=== PATIENT | male | born 1970 | race Caucasian/White ===

== ENCOUNTER 2016-12-22 08:28 | Inpatient (IN) | payer OTHER ==
[2016-12-22 10:21] VITALS: BMI 23.0
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
[2016-12-22] MEDS ORDERED: IBUPROFEN 400 MG TABLET (FP) PO PRN (13:25)
[2016-12-22] MEDS ORDERED: ACETAMINOPHEN 325 MG TABLET (FP) PO PRN (13:25)
[2016-12-22] MEDS ORDERED: P-EPHED 60MG/TRIPROLIDI 2.5MG TABLET PO PRN (13:25)
[2016-12-22] MEDS ORDERED: LOPERAMIDE HCL 2 MG CAPSULE PO PRN (13:25)
[2016-12-22] MEDS ORDERED: guaiFENesin/D-METHORPHAN HB 10 ML UNIT-DOSE CUPS PO PRN (13:25)
[2016-12-22] MEDS ORDERED: MAGNESIUM HYDROX 2400MG/30ML ORAL SUSPENSION 30 ML CUP PO PRN (13:25)
[2016-12-22] MEDS ORDERED: MAGNESIUM CITRATE 300 ML BOTTLE PO PRN (13:25)
[2016-12-22] MEDS ORDERED: NICOTINE POLACRILEX 4 MG GUM BUC PRN (13:25)
[2016-12-22] MEDS ORDERED: MAG HYDROX/AL HYDROX/SIMETH 30 ML UNIT-DOSE CUP PO PRN (13:25)
[2016-12-22] MEDS ORDERED: MENTHOL/PHENOL 1 EACH UD MM PRN (13:25)
[2016-12-22] MEDS ORDERED: METHADONE HCL 10 MG TABLET (FOR DETOX USE ONLY) PO ONE ×2 (14:02→23:00)
[2016-12-22 14:38] LABS: HIV 1 & 2 AB NEGATIVE; HIV 1 AGp24 NEGATIVE
[2016-12-22] MEDS: diazePAM 5 MG TABLET PO PRN ×2 (14:41→22:29)
[2016-12-22] MEDS: BACITRACIN 0.9 GM PACKET TP SCH ×2 (14:41→22:28)
[2016-12-22] MEDS: NICOTINE 21 MG/24 HOURS TOPICAL PATCH TD SCH (14:48)
--- NOTE | 2016-12-22 21:33 | EKG ---
Test Reason : Blood Pressure : / mmHG Vent. Rate : 061 BPM Atrial Rate : 061 BPM P-R Int : 146 ms QRS Dur : 094 ms QT Int : 434 ms P-R-T Axes : 069 059 058 degrees QTc Int : 436 ms NORMAL SINUS RHYTHM NORMAL ECG NO PREVIOUS ECGS AVAILABLE REPEAT EKG IF CLINICALLY INDICATED Confirmed by DONYA LEO MD ([id number]) on 12/22/2016 9:33:13 PM Referred By: Confirmed By:DONYA LEO MD
[2016-12-22] MEDS: THIAMINE HCL 100 MG TABLET (FP) PO SCH (22:29)
[2016-12-22 23:22] LABS: URINE APPEARANCE SLCLOUDY; URINE BILIRUBIN NEGATIVE (NEGATIVE); URINE BLOOD 3+ (NEGATIVE); URINE COLOR YELLOW; URINE GLUCOSE (UA) NEGATIVE (NEGATIVE); URINE KETONE NEGATIVE (NEGATIVE); URINE LEUK ESTERASE NEGATIVE (NEGATIVE); URINE NITRITE NEGATIVE (NEGATIVE); URINE PROTEIN NEGATIVE (NEGATIVE); URINE UROBILINOGEN NEGATIVE mg/dL (0.2-1.0)
[2016-12-22 23:28] LABS: CALCIUM OXALATE CRYSTALS FEW /hpf (NONE SEEN); URINE MUCUS RARE; URINE RBC 152 /hpf (0-3); URINE WBC 2 /hpf (3-5)
[2016-12-23] MEDS: diazePAM 5 MG TABLET PO PRN ×3 (05:33→22:23)
[2016-12-23] MEDS ORDERED: METHADONE HCL 10 MG TABLET (FOR DETOX USE ONLY) PO ONE (10:00)
[2016-12-23 10:16] LABS: MCH 31.9 pg (25.7-33.7); MCHC 34.1 g/dl (32.0-35.9); MEAN CELL VOLUME 93.5 fl (80-96); MEAN PLT VOLUME 9.1 fl (7.5-11.1)
[2016-12-23] MEDS: BACITRACIN 0.9 GM PACKET TP SCH ×2 (10:26→22:22)
[2016-12-23] MEDS: NICOTINE 21 MG/24 HOURS TOPICAL PATCH TD SCH (10:26)
[2016-12-23] MEDS: PRENATAL VITAMINS W/ FOLIC ACID TABLET (FP) PO SCH (10:26)
[2016-12-23 11:09] LABS: ALBUMIN 3.3 g/dl (3.4-5.0); ALK PHOS 74 U/L (45-117); ANION GAP 6 (8-16); BILIRUBIN,TOTAL 0.4 mg/dL (0.2-1.0); CALCIUM 8.8 mg/dL (8.5-10.1); CO2 31 mmol/L (21-32); CREATININE 0.9 mg/dL (0.7-1.3); GLUCOSE,RANDOM 71 mg/dL (74-106); SGOT/AST 61 U/L (15-37); SGPT/ALT 93 U/L (12-78); TOT PROT 7.2 g/dl (6.4-8.2)
[2016-12-23 11:47] LABS: PLATELET ESTIMATE DECREASED (NORMAL)
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
--- NOTE | 2016-12-23 13:02 | PN ---
S COWS - Scale Resting Pulse: 0= [place] 80 or Below Sweatin= Chills/Flushing Restless Observation: 3= Extraneous Movement Pupil Size: 2= Moderately Dilated Bone or Joint Aches: 4=Acute Joint/Muscle Pain Runny Nose/ Eye Tearin= Nasal Congestion GI Upset > 30mins: 1= Stomach Cramp Tremor Observation of Outstretched Hands: 2= Slight Tremor Visible Yawning Observation: 2= >3x During Session Anxiety or Irritability: 2=Irritable/Anxious Goose Flesh Skin: 0=Smooth Skin COWS Score: 18 BHS Progress Note (SOAP) Subjective: ANXIETY,SWEATS/CHILLS,FATIGUE. Objective: 12/23/16 13:01 Vital Signs Temperature 97.5 F L 12/23/16 09:32 Pulse Rate 72 12/23/16 09:32 Respiratory Rate 18 12/23/16 09:32 Blood Pressure 128/72 12/23/16 09:32 O2 Sat by Pulse Oximetry (%) Laboratory Last Values WBC 5.0 K/mm3 (4.0-10.0) 12/23/16 05:45 RBC 4.31 M/mm3 (4.00-5.60) 12/23/16 05:45 Hgb 13.8 GM/dL (11.7-16.9) 12/23/16 05:45 Hct 40.3 % (35.4-49) 12/23/16 05:45 MCV 93.5 fl (80-96) 12/23/16 05:45 MCH 31.9 pg (25.7-33.7) 12/23/16 05:45 MCHC 34.1 g/dl (32.0-35.9) 12/23/16 05:45 RDW 13.0 % (11.9-15.9) 12/23/16 05:45 Plt Count No Result Required. 12/23/16 05:45 MPV 9.1 fl (7.5-11.1) 12/23/16 05:45 Platelet Estimate Decreased (NORMAL) 12/23/16 05:45 Platelet Comment Mod plt clumping 12/23/16 05:45 Sodium 140 mmol/L (136-145) 12/23/16 05:45 Potassium 3.9 mmol/L (3.5-5.1) 12/23/16 05:45 Chloride 103 mmol/L (98-107) 12/23/16 05:45 Carbon Dioxide 31 mmol/L (21-32) 12/23/16 05:45 Anion Gap 6 (8-16) L 12/23/16 05:45 BUN 15 mg/dL (7-18) D 12/23/16 05:45 Creatinine 0.9 mg/dL (0.7-1.3) 12/23/16 05:45 Creat Clearance w eGFR > 60 (>60) 12/23/16 05:45 Random Glucose 71 mg/dL (74-106) L 12/23/16 05:45 Calcium 8.8 mg/dL (8.5-10.1) 12/23/16 05:45 Total Bilirubin 0.4 mg/dL (0.2-1.0) D 12/23/16 05:45 AST 61 U/L (15-37) H D 12/23/16 05:45 ALT 93 U/L (12-78) H D 12/23/16 05:45 Alkaline Phosphatase 74 U/L (45-117) D 12/23/16 05:45 Total Protein 7.2 g/dl (6.4-8.2) 12/23/16 05:45 Albumin 3.3 g/dl (3.4-5.0) L 12/23/16 05:45 Urine Color Yellow 12/22/16 20:00 Urine Appearance Slcloudy 12/22/16 20:00 Urine pH 5.0 (5.0-8.0) 12/22/16 20:00 Ur Specific [place] 1.020 (1.005-1.025) 12/22/16 20:00 Urine Protein Negative (NEGATIVE) 12/22/16 20:00 Urine Glucose (UA) Negative (NEGATIVE) 12/22/16 20:00 Urine Ketones Negative (NEGATIVE) 12/22/16 20:00 Urine Blood 3+ (NEGATIVE) H 12/22/16 20:00 Urine Nitrite Negative (NEGATIVE) 12/22/16 20:00 Urine Bilirubin Negative (NEGATIVE) 12/22/16 20:00 Urine Urobilinogen Negative mg/dL (0.2-1.0) 12/22/16 20:00 Ur Leukocyte Esterase Negative (NEGATIVE) 12/22/16 20:00 Urine RBC 152 /hpf (0-3) 12/22/16 20:00 Urine WBC 2 /hpf (3-5) 12/22/16 20:00 Ur Epithelial Cells Rare /hpf (FEW) 12/22/16 20:00 Calcium Oxalate Crystal Few /hpf (NONE SEEN) 12/22/16 20:00 Urine Mucus Rare 12/22/16 20:00 RPR Titer Nonreactive (NONREACTIVE) 12/23/16 05:45 HIV 1&2 Antibody Screen Negative 12/22/16 12:05 HIV P24 Antigen Negative 12/22/16 12:05 LABS NOTED Assessment: 12/23/16 13:01 WITHDRAWAL SX Plan: CONTINUE DETOX REPEAT UA;UC INCREASE PO FLUIDS
[2016-12-23] MEDS: THIAMINE HCL 100 MG TABLET (FP) PO SCH (22:22)
[2016-12-23 23:16] LABS: URINE APPEARANCE CLEAR; URINE BILIRUBIN NEGATIVE (NEGATIVE); URINE BLOOD NEGATIVE (NEGATIVE); URINE COLOR LTYELLOW; URINE GLUCOSE (UA) NEGATIVE (NEGATIVE); URINE KETONE NEGATIVE (NEGATIVE); URINE LEUK ESTERASE NEGATIVE (NEGATIVE); URINE NITRITE NEGATIVE (NEGATIVE); URINE PROTEIN NEGATIVE (NEGATIVE); URINE UROBILINOGEN NEGATIVE mg/dL (0.2-1.0)
[2016-12-24] MEDS ORDERED: METHADONE HCL 5 MG TABLET (FOR DETOX USE ONLY) PO ONE (10:00)
[2016-12-24] MEDS: BACITRACIN 0.9 GM PACKET TP SCH ×2 (10:41→22:16)
[2016-12-24] MEDS: PRENATAL VITAMINS W/ FOLIC ACID TABLET (FP) PO SCH (10:42)
[2016-12-24] MEDS: NICOTINE 21 MG/24 HOURS TOPICAL PATCH TD SCH (10:43)
--- NOTE | 2016-12-24 11:11 | PN ---
BHS COWS - Scale Resting Pulse: 0= [place] 80 or Below Sweatin= Chills/Flushing Restless Observation: 3= Extraneous Movement Pupil Size: 2= Moderately Dilated Bone or Joint Aches: 4=Acute Joint/Muscle Pain Runny Nose/ Eye Tearin= Nasal Congestion GI Upset > 30mins: 1= Stomach Cramp Tremor Observation of Outstretched Hands: 1= Tremor Marcell, Not Seen Yawning Observation: 2= >3x During Session Anxiety or Irritability: 2=Irritable/Anxious Goose Flesh Skin: 0=Smooth Skin COWS Score: 17 BHS Progress Note (SOAP) Subjective: ANXIETY,SWEATS,IRRITABILITY. Objective: 12/24/16 11:11 Vital Signs Temperature 98.2 F 12/24/16 09:52 Pulse Rate 75 12/24/16 09:52 Respiratory Rate 16 12/24/16 09:52 Blood Pressure 123/73 12/24/16 09:52 O2 Sat by Pulse Oximetry (%) Laboratory Last Values WBC 5.0 K/mm3 (4.0-10.0) 12/23/16 05:45 RBC 4.31 M/mm3 (4.00-5.60) 12/23/16 05:45 Hgb 13.8 GM/dL (11.7-16.9) 12/23/16 05:45 Hct 40.3 % (35.4-49) 12/23/16 05:45 MCV 93.5 fl (80-96) 12/23/16 05:45 MCH 31.9 pg (25.7-33.7) 12/23/16 05:45 MCHC 34.1 g/dl (32.0-35.9) 12/23/16 05:45 RDW 13.0 % (11.9-15.9) 12/23/16 05:45 Plt Count No Result Required. 12/23/16 05:45 MPV 9.1 fl (7.5-11.1) 12/23/16 05:45 Platelet Estimate Decreased (NORMAL) 12/23/16 05:45 Platelet Comment Mod plt clumping 12/23/16 05:45 Sodium 140 mmol/L (136-145) 12/23/16 05:45 Potassium 3.9 mmol/L (3.5-5.1) 12/23/16 05:45 Chloride 103 mmol/L (98-107) 12/23/16 05:45 Carbon Dioxide 31 mmol/L (21-32) 12/23/16 05:45 Anion Gap 6 (8-16) L 12/23/16 05:45 BUN 15 mg/dL (7-18) D 12/23/16 05:45 Creatinine 0.9 mg/dL (0.7-1.3) 12/23/16 05:45 Creat Clearance w eGFR > 60 (>60) 12/23/16 05:45 Random Glucose 71 mg/dL (74-106) L 12/23/16 05:45 Calcium 8.8 mg/dL (8.5-10.1) 12/23/16 05:45 Total Bilirubin 0.4 mg/dL (0.2-1.0) D 12/23/16 05:45 AST 61 U/L (15-37) H D 12/23/16 05:45 ALT 93 U/L (12-78) H D 12/23/16 05:45 Alkaline Phosphatase 74 U/L (45-117) D 12/23/16 05:45 Total Protein 7.2 g/dl (6.4-8.2) 12/23/16 05:45 Albumin 3.3 g/dl (3.4-5.0) L 12/23/16 05:45 Urine Color Ltyellow 12/23/16 17:00 Urine Appearance Clear 12/23/16 17:00 Urine pH 5.0 (5.0-8.0) 12/23/16 17:00 Ur Specific [place] 1.020 (1.005-1.025) 12/23/16 17:00 Urine Protein Negative (NEGATIVE) 12/23/16 17:00 Urine Glucose (UA) Negative (NEGATIVE) 12/23/16 17:00 Urine Ketones Negative (NEGATIVE) 12/23/16 17:00 Urine Blood Negative (NEGATIVE) 12/23/16 17:00 Urine Nitrite Negative (NEGATIVE) 12/23/16 17:00 Urine Bilirubin Negative (NEGATIVE) 12/23/16 17:00 Urine Urobilinogen Negative mg/dL (0.2-1.0) 12/23/16 17:00 Ur Leukocyte Esterase Negative (NEGATIVE) 12/23/16 17:00 Urine RBC 152 /hpf (0-3) 12/22/16 20:00 Urine WBC 2 /hpf (3-5) 12/22/16 20:00 Ur Epithelial Cells Rare /hpf (FEW) 12/22/16 20:00 Calcium Oxalate Crystal Few /hpf (NONE SEEN) 12/22/16 20:00 Urine Mucus Rare 12/22/16 20:00 RPR Titer Nonreactive (NONREACTIVE) 12/23/16 05:45 HIV 1&2 Antibody Screen Negative 12/22/16 12:05 HIV P24 Antigen Negative 12/22/16 12:05 Assessment: 12/24/16 11:11 WITHDRAWAL SX Plan: CONTINUE DETOX
[2016-12-24] MEDS: THIAMINE HCL 100 MG TABLET (FP) PO SCH (22:16)
[2016-12-24] MEDS: diazePAM 5 MG TABLET PO PRN (22:16)
[2016-12-25] MEDS ORDERED: METHADONE HCL 5 MG TABLET (FOR DETOX USE ONLY) PO ONE (10:00)
[2016-12-25] MEDS: PRENATAL VITAMINS W/ FOLIC ACID TABLET (FP) PO SCH (10:18)
[2016-12-25] MEDS: BACITRACIN 0.9 GM PACKET TP SCH ×2 (10:18→22:38)
[2016-12-25] MEDS: NICOTINE 21 MG/24 HOURS TOPICAL PATCH TD SCH (10:19)
--- NOTE | 2016-12-25 11:14 | PN ---
S Progress Note (SOAP) Subjective: DECREASED,ANXIETY,SWEATS/CHILLS. Objective: 12/25/16 11:13 Vital Signs Temperature 97.7 F 12/25/16 09:17 Pulse Rate 64 12/25/16 09:17 Respiratory Rate 18 12/25/16 09:17 Blood Pressure 100/67 12/25/16 09:17 O2 Sat by Pulse Oximetry (%) Laboratory Last Values WBC 5.0 K/mm3 (4.0-10.0) 12/23/16 05:45 RBC 4.31 M/mm3 (4.00-5.60) 12/23/16 05:45 Hgb 13.8 GM/dL (11.7-16.9) 12/23/16 05:45 Hct 40.3 % (35.4-49) 12/23/16 05:45 MCV 93.5 fl (80-96) 12/23/16 05:45 MCH 31.9 pg (25.7-33.7) 12/23/16 05:45 MCHC 34.1 g/dl (32.0-35.9) 12/23/16 05:45 RDW 13.0 % (11.9-15.9) 12/23/16 05:45 Plt Count No Result Required. 12/23/16 05:45 MPV 9.1 fl (7.5-11.1) 12/23/16 05:45 Platelet Estimate Decreased (NORMAL) 12/23/16 05:45 Platelet Comment Mod plt clumping 12/23/16 05:45 Sodium 140 mmol/L (136-145) 12/23/16 05:45 Potassium 3.9 mmol/L (3.5-5.1) 12/23/16 05:45 Chloride 103 mmol/L (98-107) 12/23/16 05:45 Carbon Dioxide 31 mmol/L (21-32) 12/23/16 05:45 Anion Gap 6 (8-16) L 12/23/16 05:45 BUN 15 mg/dL (7-18) D 12/23/16 05:45 Creatinine 0.9 mg/dL (0.7-1.3) 12/23/16 05:45 Creat Clearance w eGFR > 60 (>60) 12/23/16 05:45 Random Glucose 71 mg/dL (74-106) L 12/23/16 05:45 Calcium 8.8 mg/dL (8.5-10.1) 12/23/16 05:45 Total Bilirubin 0.4 mg/dL (0.2-1.0) D 12/23/16 05:45 AST 61 U/L (15-37) H D 12/23/16 05:45 ALT 93 U/L (12-78) H D 12/23/16 05:45 Alkaline Phosphatase 74 U/L (45-117) D 12/23/16 05:45 Total Protein 7.2 g/dl (6.4-8.2) 12/23/16 05:45 Albumin 3.3 g/dl (3.4-5.0) L 12/23/16 05:45 Urine Color Ltyellow 12/23/16 17:00 Urine Appearance Clear 12/23/16 17:00 Urine pH 5.0 (5.0-8.0) 12/23/16 17:00 Ur Specific [place] 1.020 (1.005-1.025) 12/23/16 17:00 Urine Protein Negative (NEGATIVE) 12/23/16 17:00 Urine Glucose (UA) Negative (NEGATIVE) 12/23/16 17:00 Urine Ketones Negative (NEGATIVE) 12/23/16 17:00 Urine Blood Negative (NEGATIVE) 12/23/16 17:00 Urine Nitrite Negative (NEGATIVE) 12/23/16 17:00 Urine Bilirubin Negative (NEGATIVE) 12/23/16 17:00 Urine Urobilinogen Negative mg/dL (0.2-1.0) 12/23/16 17:00 Ur Leukocyte Esterase Negative (NEGATIVE) 12/23/16 17:00 Urine RBC 152 /hpf (0-3) 12/22/16 20:00 Urine WBC 2 /hpf (3-5) 12/22/16 20:00 Ur Epithelial Cells Rare /hpf (FEW) 12/22/16 20:00 Calcium Oxalate Crystal Few /hpf (NONE SEEN) 12/22/16 20:00 Urine Mucus Rare 12/22/16 20:00 RPR Titer Nonreactive (NONREACTIVE) 12/23/16 05:45 HIV 1&2 Antibody Screen Negative 12/22/16 12:05 HIV P24 Antigen Negative 12/22/16 12:05 Assessment: 12/25/16 11:14 WITHDRAWAL SX Plan: CONTINUED DETOX
[2016-12-25 16:11] LABS: URINE APPEARANCE CLEAR; URINE BILIRUBIN NEGATIVE (NEGATIVE); URINE BLOOD NEGATIVE (NEGATIVE); URINE COLOR LTYELLOW; URINE GLUCOSE (UA) NEGATIVE (NEGATIVE); URINE KETONE NEGATIVE (NEGATIVE); URINE LEUK ESTERASE NEGATIVE (NEGATIVE); URINE NITRITE NEGATIVE (NEGATIVE); URINE PROTEIN NEGATIVE (NEGATIVE); URINE UROBILINOGEN NEGATIVE mg/dL (0.2-1.0)
[2016-12-25] MEDS: THIAMINE HCL 100 MG TABLET (FP) PO SCH (22:26)
[2016-12-25] MEDS: diphenhydrAMINE HCL 50 MG CAPSULE PO PRN (22:26)
[2016-12-26] MEDS ORDERED: METHADONE HCL 10 MG TABLET (FOR DETOX USE ONLY) PO ONE (10:00)
[2016-12-26] MEDS: NICOTINE 21 MG/24 HOURS TOPICAL PATCH TD SCH (10:18)
[2016-12-26] MEDS: PRENATAL VITAMINS W/ FOLIC ACID TABLET (FP) PO SCH (10:18)
[2016-12-26] MEDS: BACITRACIN 0.9 GM PACKET TP SCH ×2 (10:18→22:20)
--- NOTE | 2016-12-26 15:00 | PN ---
S Progress Note (SOAP) Subjective: Tremors. Objective: PT. A & O X 3, OBSERVED AMBULATING ON UNIT. NO ACUTE DISTRESS. PT. DENIES CHEST PAIN. 12/26/16 14:58 Vital Signs Temperature 97.0 F L 12/26/16 13:43 Pulse Rate 63 12/26/16 13:43 Respiratory Rate 18 12/26/16 13:43 Blood Pressure 102/70 12/26/16 13:43 O2 Sat by Pulse Oximetry (%) Laboratory Tests 12/22/16 12/22/16 12/23/16 12:05 20:00 05:45 WBC 5.0 RBC 4.31 Hgb 13.8 Hct 40.3 MCV 93.5 MCH 31.9 MCHC 34.1 RDW 13.0 Plt Count No Result Required. MPV 9.1 Platelet Estimate Decreased Platelet Comment Mod plt clumping Sodium Potassium Chloride Carbon Dioxide Anion Gap BUN Creatinine Creat Clearance w eGFR Random Glucose Calcium Total Bilirubin AST ALT Alkaline Phosphatase Total Protein Albumin Urine Color Yellow Urine Appearance Slcloudy Urine pH 5.0 Ur Specific [place] 1.020 Urine Protein Negative Urine Glucose (UA) Negative Urine Ketones Negative Urine Blood 3+ H Urine Nitrite Negative Urine Bilirubin Negative Urine Urobilinogen Negative Ur Leukocyte Esterase Negative Urine RBC 152 Urine WBC 2 Ur Epithelial Cells Rare Calcium Oxalate Crystal Few Urine Mucus Rare RPR Titer HIV 1&2 Antibody Screen Negative HIV P24 Antigen Negative 12/23/16 12/23/16 12/23/16 05:45 05:45 17:00 WBC RBC Hgb Hct MCV MCH MCHC RDW Plt Count MPV Platelet Estimate Platelet Comment Sodium 140 Potassium 3.9 Chloride 103 Carbon Dioxide 31 Anion Gap 6 L BUN 15 D Creatinine 0.9 Creat Clearance w eGFR > 60 Random Glucose 71 L Calcium 8.8 Total Bilirubin 0.4 D AST 61 H D ALT 93 H D Alkaline Phosphatase 74 D Total Protein 7.2 Albumin 3.3 L Urine Color Ltyellow Urine Appearance Clear Urine pH 5.0 Ur Specific [place] 1.020 Urine Protein Negative Urine Glucose (UA) Negative Urine Ketones Negative Urine Blood Negative Urine Nitrite Negative Urine Bilirubin Negative Urine Urobilinogen Negative Ur Leukocyte Esterase Negative Urine RBC Urine WBC Ur Epithelial Cells Calcium Oxalate Crystal Urine Mucus RPR Titer Nonreactive HIV 1&2 Antibody Screen HIV P24 Antigen 12/25/16 13:40 WBC RBC Hgb Hct MCV MCH MCHC RDW Plt Count MPV Platelet Estimate Platelet Comment Sodium Potassium Chloride Carbon Dioxide Anion Gap BUN Creatinine Creat Clearance w eGFR Random Glucose Calcium Total Bilirubin AST ALT Alkaline Phosphatase Total Protein Albumin Urine Color Ltyellow Urine Appearance Clear Urine pH 7.0 D Ur Specific [place] 1.015 Urine Protein Negative Urine Glucose (UA) Negative Urine Ketones Negative Urine Blood Negative Urine Nitrite Negative Urine Bilirubin Negative Urine Urobilinogen Negative Ur Leukocyte Esterase Negative Urine RBC Urine WBC Ur Epithelial Cells Calcium Oxalate Crystal Urine Mucus RPR Titer HIV 1&2 Antibody Screen HIV P24 Antigen LABS NOTED. RESULTS OF UA'S NOTED. PATIENT DENIES ANY UNUSUAL URINARY SYMPTOMS (BURNING, PAIN, FREQUENCY). 12/26/16 15:00 Assessment: 12/26/16 14:59 WITHDRAWAL SYMPTOMS. Plan: CONTINUE DETOX.
[2016-12-26] MEDS: THIAMINE HCL 100 MG TABLET (FP) PO SCH (22:20)
[2016-12-26] MEDS: diphenhydrAMINE HCL 50 MG CAPSULE PO PRN (22:20)
[2016-12-27] MEDS ORDERED: METHADONE HCL 5 MG TABLET (FOR DETOX USE ONLY) PO ONE (06:00)
[2016-12-27 06:20] VITALS: TEMP 97
[2016-12-27 09:28] VITALS: BP 99/67; PULSE 64
--- NOTE | 2016-12-27 16:46 | DS ---
[facility] Detox Discharge Summary Admission Date: 12/22/16 - History Present History: Cocaine Dependence, Opioid Dependence Pertinent Past History: Elevated LFTs (chronic) - Physical Exam Results Vital Signs: Vital Signs Temperature 97.0 F L 12/27/16 09:28 Pulse Rate 64 12/27/16 09:28 Respiratory Rate 20 12/27/16 09:28 Blood Pressure 99/67 12/27/16 09:28 O2 Sat by Pulse Oximetry (%) Pertinent Admission Physical Exam Findings: Withdrawal symptoms Laboratory Tests 12/22/16 12/22/16 12/23/16 12:05 20:00 05:45 WBC 5.0 RBC 4.31 Hgb 13.8 Hct 40.3 MCV 93.5 MCH 31.9 MCHC 34.1 RDW 13.0 Plt Count No Result Required. MPV 9.1 Platelet Estimate Decreased Platelet Comment Mod plt clumping Sodium Potassium Chloride Carbon Dioxide Anion Gap BUN Creatinine Creat Clearance w eGFR Random Glucose Calcium Total Bilirubin AST ALT Alkaline Phosphatase Total Protein Albumin Urine Color Yellow Urine Appearance Slcloudy Urine pH 5.0 Ur Specific [place] 1.020 Urine Protein Negative Urine Glucose (UA) Negative Urine Ketones Negative Urine Blood 3+ H Urine Nitrite Negative Urine Bilirubin Negative Urine Urobilinogen Negative Ur Leukocyte Esterase Negative Urine RBC 152 Urine WBC 2 Ur Epithelial Cells Rare Calcium Oxalate Crystal Few Urine Mucus Rare RPR Titer HIV 1&2 Antibody Screen Negative HIV P24 Antigen Negative 12/23/16 12/23/16 12/23/16 05:45 05:45 17:00 WBC RBC Hgb Hct MCV MCH MCHC RDW Plt Count MPV Platelet Estimate Platelet Comment Sodium 140 Potassium 3.9 Chloride 103 Carbon Dioxide 31 Anion Gap 6 L BUN 15 D Creatinine 0.9 Creat Clearance w eGFR > 60 Random Glucose 71 L Calcium 8.8 Total Bilirubin 0.4 D AST 61 H D ALT 93 H D Alkaline Phosphatase 74 D Total Protein 7.2 Albumin 3.3 L Urine Color Ltyellow Urine Appearance Clear Urine pH 5.0 Ur Specific [place] 1.020 Urine Protein Negative Urine Glucose (UA) Negative Urine Ketones Negative Urine Blood Negative Urine Nitrite Negative Urine Bilirubin Negative Urine Urobilinogen Negative Ur Leukocyte Esterase Negative Urine RBC Urine WBC Ur Epithelial Cells Calcium Oxalate Crystal Urine Mucus RPR Titer Nonreactive HIV 1&2 Antibody Screen HIV P24 Antigen 12/25/16 13:40 WBC RBC Hgb Hct MCV MCH MCHC RDW Plt Count MPV Platelet Estimate Platelet Comment Sodium Potassium Chloride Carbon Dioxide Anion Gap BUN Creatinine Creat Clearance w eGFR Random Glucose Calcium Total Bilirubin AST ALT Alkaline Phosphatase Total Protein Albumin Urine Color Ltyellow Urine Appearance Clear Urine pH 7.0 D Ur Specific [place] 1.015 Urine Protein Negative Urine Glucose (UA) Negative Urine Ketones Negative Urine Blood Negative Urine Nitrite Negative Urine Bilirubin Negative Urine Urobilinogen Negative Ur Leukocyte Esterase Negative Urine RBC Urine WBC Ur Epithelial Cells Calcium Oxalate Crystal Urine Mucus RPR Titer HIV 1&2 Antibody Screen HIV P24 Antigen Labs noted - Treatment Hospital Course: Detox Protocol Followed, Detoxed Safely, Responded well, Discharged Condition Good - Medication Discharge Medications: Ambulatory Orders [place] Carbonate [Eskalith -] 300 mg PO DAILY 12/22/16 [place] Carbonate [Eskalith -] 600 mg PO HS 12/22/16 Sertraline HCl [Zoloft -] 25 mg PO DAILY 12/22/16 - Diagnosis (1) Cocaine dependence with withdrawal Status: Chronic (2) Nicotine dependence Status: Chronic Qualifiers: Nicotine product type: cigarettes Substance use status: in withdrawal Qualified Code(s): F17.213 - Nicotine dependence, cigarettes, with withdrawal (3) Opioid dependence with withdrawal Status: Acute (4) Bipolar disorder Status: Chronic - AMA Did Patient Leave Against Medical Advice: No
== END 2016-12-27 08:49 | disposition home or self-care (01) | DRG 773 ==
LOC: YASAS 08:28 → Y3N 13:36
PROVIDERS: ADMIT Internal Medicine; ATTEND Internal Medicine
PROC: HZ2ZZZZ Detoxification Services for Substance Abuse Treatment (ICD-10-PCS; principal; 2016-12-27)
DX: F11.23 Opioid dependence with withdrawal (principal); F13.230 Sedative, hypnotic or anxiolytic dependence with withdrawal, uncomplicated; F14.20 Cocaine dependence, uncomplicated; F17.210 Nicotine dependence, cigarettes, uncomplicated; F31.9 Bipolar disorder, unspecified; S00.12XA Contusion of left eyelid and periocular area, initial encounter; Y04.0XXA Assault by unarmed brawl or fight, initial encounter; Y92.89 Other specified places as the place of occurrence of the external cause
CPT/HCPCS: 36415; 80053; 81003; 81015; 85027; 86593; 87086; 87389; 93005; 93010

== ENCOUNTER 2020-03-08 11:01 | Inpatient (IN) | payer OTHER ==
--- OUTSIDE RECORDS SUMMARY | 2020-03-08 11:11 | XMS ---
:1970 Author Organization [facility] Care Team Providers Name Role Phone Johnathon Tapia MD Unavailable Unavailable Dejah Bo SCAFFOLD WORKER Unavailable Unavailable [facility] Unavailable Unavailable Peris, D Unavailable Unavailable Aaron Unavailable Unavailable Noyer Unavailable Unavailable Noyer Unavailable Unavailable Noyer Unavailable Unavailable Noyer Unavailable Unavailable Noyer Unavailable Unavailable Noyer Unavailable Unavailable GROSS, S Unavailable Unavailable GROSS, S Unavailable Unavailable GROSS, S Unavailable Unavailable GROSS, S Unavailable Unavailable GROSS, S Unavailable Unavailable GROSS, S Unavailable Unavailable GROSS, S Unavailable Unavailable GROSS, S Unavailable Unavailable GROSS, S Unavailable Unavailable Re-disclosure Warning The records that you are about to access may contain information from federally- assisted alcohol or drug abuse programs. If such information is present, then the following federally mandated warning applies: This information has been disclosed to you from records protected by federal confidentiality rules (42 CFR part 2). The federal rules prohibit you from making any further disclosure of this information unless further disclosure is expressly permitted by the written consent of the person to whom it pertains or as otherwise permitted by 42 CFR part 2. A general authorization for the release of medical or other information is NOT sufficient for this purpose. The Federal rules restrict any use of the information to criminally investigate or prosecute any alcohol or drug abuse patient.The records that you are about to access may contain highly sensitive health information, the redisclosure of which is protected by Article 27-F of the [facility] Public Health law. If you continue you may haveaccess to information: Regarding HIV / AIDS; Provided by facilities licensed or operated by the [facility] Office of Mental Health; or Provided by the [facility] Office for People With Developmental Disabilities. If such information is present, then the following [facility] mandated warning applies: This information has been disclosed to you from confidential records which are protected by state law. State law prohibits you from making any further disclosure of this information without the specific written consent of the person to whom it pertains, or as otherwise permitted by law. Any unauthorized further disclosure in violation of state law may result in a fine or senior living sentence or both. A general authorization for the release of medical or other information is NOT sufficient authorization for further disclosure. Allergies and Adverse Reactions Type Description Substance Reaction Status Data Source(s ) 3 PENICILLINS PENICILLINS NEXTGEN ([facility]) Encounters Encounter Providers Location Date Indications Data Source(s ) Outpatient Attender: NARAYAN 03/04/2020 [facility] ([facility] 05:45:24 PM [facility] EDT [facility]) Patient admitted. Outpatient Attender: Omar 02/27/2020 03:15:00 PM NEXTGEN ([facility] PerisReferrer: MARY LOU GROSS EDT Medical - [facility] ) Outpatient Attender: MARY LOU 02/23/2020 12:45:00 PM NEXTGEN ([facility] GROSSReferrer: MARY LOU GROSS EDT [facility] - [facility]) Outpatient Attender: MARY LOU DE LOS SANTOS 02/15/2020 03:53:00 PM NEXTGEN ([facility]T [facility]) Outpatient Attender: MARY LOU 02/09/2020 10:15:00 AM NEXTGEN ([facility] GROSSReferrer: MARY LOU GROSS EDT [facility] - [facility] ) Outpatient Attender: Yobani 02/06/2020 05:15:00 PM NEXTGEN ([facility] NeptuneReferrer: Yobani EDT Oh dical - [facility]) Outpatient Attender: [place] [facility] 12/30/2019 12:54:19 PM [facility] ([facility] EDT [facility]) Patient admitted. Outpatient Attender: Digestive 12/07/2019 MEDENT ([facility] adriana [place] [facility] & 09:40:00 AM EDT Diseas e & Nutrition Nutrition [facility] ) Outpatient Attender: Digestive 10/09/2019 MEDENT (Digest adriana [place] [facility] & 03:10:00 PM EDT Diseas e & Nutrition Nutrition [facility] ) Outpatient Attender: Digestive 09/21/2019 MEDENT (Digest adriana [place] [facility] & 02:30:00 PM EDT Diseas e & Nutrition Nutrition [facility] ) Outpatient Attender: Digestive 09/14/2019 MEDENT (Digest adriana [place] [facility] & 10:10:00 AM EDT Diseas e & Nutrition Nutrition [facility] ) Outpatient Attender: Dejah 09/06/2019 [facility] eber Bo 08:00:00 AM EDT [facility] Outpatient Attender: MHAW9 [facility] 08/18/2019 07:05:55 AM [facility] ([facility]) Patient admitted. Unlisted evaluation 08/02/2019 NETS ART (Mental and management 08:00:00 PM EST [facility] ) Emergency Attender: Johnathon 07/16/2019 ANNETTE Tapia MD 08:25:00 PM [facility] 07[facility] " [place] 10:34:00 PM EST FB "[facility]" [place] Patient discharged. Outpatient Attender: Dejah Bo 06/08/2019 11:48:00 AM F/ U [facility] EST F/U Outpatient 03/27/2019 02:19:00 PM EDT [facility] ([facility]) Patient admitted. Outpatient 03/27/2019 02:18:57 PM EDT [facility] ([facility]) Patient admitted. Outpatient 03/27/2019 02:18:51 PM EDT [facility] ([facility]) Patient admitted. Outpatient 03/27/2019 02:18:48 PM EDT [facility] ([facility]) Patient admitted. Outpatient 03/27/2019 02:18:26 PM EDT [facility] ([facility]) Patient admitted. Outpatient 03/27/2019 02:18:23 PM EDT [facility] ([facility]) Patient admitted. Medications Medication Brand Start Product Dose Route Administrative Pharmacy St atus Indications Reaction Description Data Name Date Form Instructions Instructions Source(s) Methylpheni RITALI RP NEXTGE N date N ([facility] Hydrochlori Medical - de 5 MG [place] [facility] Tablet Medical [Ritalin] 5 Group [facility] ) mg 5 mg This may be an active medication. No end date is available. Start date above may not reflect actual date the medication was s tarted. Acetaminophen 325 NORCO 02/23/2020 take 1 RP NEXTGEN MG / Hydrocodone 12:00:00 AM EDT tablet by ([facility] Bitartrate 5 MG oral route Medical - Mt Oral Tablet [[place]] every day as [facility] 5 mg-325 mg 5 needed for Group PC) mg-325 mg pain, no etoh, no driving This may be an active medication. No end date is available. Prednisone 10 PREDNISONE 02/23/2020 take 4 tabs RP NEXTGEN MG Oral Tablet 12:00:00 AM EDT po x2 days, 3 ([facility] 10 mg 10 mg tabs x 2 Medi jian - Mt days, 2 tabs [facility] x 2 day, 1 Group PC) tab x 1 day take after breakfast This may be an active medication. No end date is available. Ibuprofen 800 IBUPROFEN 02/15/2020 take 1 RP NEXTGEN MG Oral Tablet 12:00:00 AM EDT tablet by ([facility] 800 mg 800 mg oral route 2 Medical - [facility] times every [facility] day as Group [facility]) needed, with food This may be an active medication. No end date is available. Ibuprofen 800 IBUPROFEN 02/09/2020 take 1 RP NEXTGEN MG Oral Tablet 12:00:00 AM EDT tablet by ([facility] 800 mg 800 mg oral route 2 Medical - [facility] times every [facility] day as Group [facility]) needed, with food This may be an active medication. No end date is available. tizanidine 4 MG TIZANIDINE HCL 02/09/2020 take 1 RP NEXTGEN Oral Capsule 4 12:00:00 AM capsule by ([facility] mg 4 mg EDT oral route Medica l - Mt every day [facility] as needed, Group PC) This may be an active medication. No end date is available. Cyclobenzaprine CYCLOBENZAPRINE 02/06/2020 take 1 RP NEXTGEN hydrochloride 10 HCL 12:00:00 AM tablet ([facility] MG Oral Tablet 10 EDT by oral Medical - Mt mg 10 mg route 2 [facility] times Medical every Group [facility]) day This may be an active medication. No end date is available. 24 HR Methylphenidate 01/12/2020 1.0 Oral active NETSMART Methylphenidate HCl 04:00:00 AM Tablet (Mental Hydrochloride 54 EDT Hea lth MG Extended Associat ion Release Oral of Tablet [place]) Methylphenidate Methylphenidate 01/12/2020 1.0 Oral active NETSMART Hydrochloride 10 HCl 04:00:00 AM Tablet (Mental MG Oral Tablet EDT [facility]) [place] 01/12/2020 2.0 Oral active N ETSMART Carbonate 450 MG Carbonate 04:00:00 AM Tablet (Mental Extended Release EDT Hea lth Oral Tablet Associat [facility]) 24 HR Methylphenidate 12/13/2019 1.0 Oral active NETSMART Methylphenidate HCl 04:00:00 AM Tablet (Mental Hydrochloride 54 EDT Hea lth MG Extended Associat ion Release Oral of Tablet [place]) Methylphenidate Methylphenidate 12/13/2019 1.0 Oral active NETSMART Hydrochloride 10 HCl 04:00:00 AM Tablet (Mental MG Oral Tablet [facility]) [place] 12/13/2019 2.0 Oral active N ETSMART Carbonate 450 MG Carbonate 04:00:00 AM Tablet (Mental Extended Release EDT Hea lth Oral Tablet [facility]) Methylphenidate 11/13/2019 1.0 Oral active NETSMART HCl 04:00:00 AM Tablet (Menta l [facility]) [place] 11/13/2019 2.0 Oral active N ETSMART Carbonate 450 MG Carbonate 04:00:00 AM Tablet (Mental Extended Release EDT Hea lth Oral Tablet Associat [facility]) Methylphenidate Methylphenidate 11/13/2019 1.0 Oral active NETSMART Hydrochloride 10 HCl 04:00:00 AM Tablet (Mental MG Oral Tablet [facility]) Methylphenidate Methylphenidate 10/10/2019 1.0 Oral active NETSMART Hydrochloride 10 HCl 04:00:00 AM Tablet (Mental MG Oral Tablet [facility]) Methylphenidate 10/10/2019 1.0 Oral active NETSMART HCl 04:00:00 AM Tablet (Menta l [facility]) [place] 10/10/2019 2.0 Oral active N ETSMART Carbonate 450 MG Carbonate 04:00:00 AM Tablet (Mental Extended Release EDT Hea lth Oral Tablet Associat [facility]) Mavyret Mavyret 10/09/2019 ORAL active M EDENT 12:00:00 AM (Digesti ve [facility] Disease & Nutrition [facility]) magnesium Magnesium 07/16/2019 SOLUT 296 mL ORAL active [place] citrate 58.2 Citrate 10:28:00 PM ION Hospital MG/ML Oral EST Solution [Citroma] Magnesium Citrate sennosides, GROUP HOME Sennosides 07/16/2019 TABLE 1 ORAL active [place] 8.6 MG Oral 10:28:00 PM T {Capsul Hospital Tablet EST e} Sennosides Docusate Sodium Docusate Sodium 07/16/2019 CAPSU 1 ORAL active [place] 100 MG Oral 10:28:00 PM LE {Capsul Hospital Capsule EST e} Insurance Providers Payer name Policy type Policy ID Covered Covered libertarian's Policy P angeline / Coverage libertarian ID relationship to [place] Inf ormation type rocha [facility] Medicaid [id number] 1 [id number] And Child Health Plus [place] [id number] PT [id number] 700 [facility] [id number] PT [id number] 700 [facility] MEDICAID [id number] Medicaid [id number] S [id number] Regular Clinic Visit Problems, Conditions, and Diagnoses Code Display Name Description Problem Type Effective Data Sour ce(s) Dates [id number] Bipolar I disorder Bipolar I Complaint 08/01/2019 NETSMA RT disorder 08:00:00 PM (Mental Healt h EST [facility]) M48.02 Spinal stenosis, Cervical Diagnosis 02/23/2020 NEXTGEN cervical region stenosis of 12:45:00 PM ([facility] spinal canal [facility]) M54.12 Radiculopathy, Cervical Diagnosis 02/09/2020 NEXTGEN cervical region radiculopathy 10:15:00 AM ([facility]) M25.512 Pain in left shoulder Pain in left Diagnosis 02/06/2020 N EXTGEN shoulder 05:15:00 PM ([facility] EDT [facility]) M25.511 Pain in right Acute pain of Diagnosis 02/06/2020 NEXTGEN shoulder both shoulders 05:15:00 PM ([facility] EDT [facility]) M54.2 Cervicalgia Neck pain Diagnosis 02/06/2020 NEXTGEN 05:15:00 PM ([facility] EDT [facility]) F17.200 Nicotine dependence, F17.200 Diagnosis 09/06/2019 [place] unspecified, 08:00:00 AM Hospital uncomplicated EDT R21 Rash and other R21 Diagnosis 09/06/2019 [place] nonspecific skin 08:00:00 AM Hospita l eruption EDT F31.9 Bipolar disorder, F31.9 Diagnosis 09/06/2019 [place] unspecified 08:00:00 AM Hospital EDT M54.9 Dorsalgia, M54.9 Diagnosis 09/06/2019 [place] unspecified 08:00:00 AM Hospital EDT M25.519 Pain in unspecified M25.519 Diagnosis 09/06/2019 [place] shoulder 08:00:00 AM Hospital EDT B18.2 Chronic viral B18.2 Diagnosis 09/06/2019 [place] hepatitis C 08:00:00 AM Hospital EDT L40.9 Psoriasis, L40.9 Diagnosis 09/06/2019 [place] unspecified 08:00:00 AM Hospital EDT K59.00 Constipation, K59.00 Diagnosis 07/16/2019 [place] unspecified 08:41:00 PM Hospital EST E78.1 Pure E78.1 Diagnosis 06/08/2019 [place] hyperglyceridemia 11:48:00 AM Hospit al EST Surgeries/Procedures Procedure Description Date Indications Data Source(s) OFFICE CONSULTATION OFFICE CONSULTATION 02/27/2020 N EXTGEN ([facility] 12:00:[address] [facility]) OFFICE/OUTPATIENT OFFICE/OUTPATIENT 02/23/2020 NEXTG EN ([facility] VISIT EST VISIT EST 12:00:[address] [facility]) OFFICE CONSULTATION OFFICE CONSULTATION 02/09/2020 N EXTGEN ([facility] 12:00:00 AM [facility] Ki sco EDT Medical Group P C) Pelvis X-ray 07/16/2019 [place] (procedure) 12:00:00 AM Hospital EST Results ID Date Data Source [id number] 12/07/2019 10:36:00 AM EDT MED[facility] ([facility] tive Disease & Nutrition [facility]) Name Value Range Interpretation Description Data Sup porting Code Source(s) Document(s ) Laboratory Laboratory MEDENT test finding test result (Digestive (navigational Disease & concept) Nutrition [facility] ) ID Date Data Source [id number] 12/07/2019 10:36:00 AM EDT MED[facility] ([facility] tive Disease & Nutrition [facility]) Name Value Range Interpretation Description Data Sup porting Code Source(s) Document(s ) Laboratory 471 IU/ml MEDENT test finding (Digestive (navigational Disease & concept) Nutrition [facility] ) Laboratory Laboratory MEDENT test finding test result (Digestive (navigational Disease & concept) Nutrition [facility] ) The quantifiable range of this assay is 12 to 100,000,000 IU/mL for genotypes 1-6 and the limit of detection of the assay is 12 IU/mL. Laboratory test finding 2.673 vfb75PS/mL MEDENT (Digestive Disease & (navigational concept) Nutriti on [facility]) ID Date Data Source [id number] 12/07/2019 10:36:00 AM EDT MED[facility] ([facility] Disease & Nutrition [facility]) Name Value Range Interpretation Description Data Sup porting Code Source(s) Document(s ) Bilirubin.total 0.3 0.0-1.2 MED[facility] [Mass/volume] in mg/dL (Digestive Serum or Plasma Disease & Nutrition [facility] ) Protein 7.8 6.0-8.5 MEDENT [Mass/volume] in g/dL (Digestive Serum or Plasma Disease & Nutrition [facility] ) Albumin 4.7 4.0-5.0 MEDENT [Mass/volume] in g/dL (Digestive Serum or Plasma Disease & Nutrition [facility] ) Aspartate 27 IU/L 0-40 [facility] aminotransferase (Digestive [Enzymatic Disease & activity/volume] in Nutrition Serum or Plasma [facility] ) Alanine 31 IU/L 0-44 [facility] aminotransferase (Digestive [Enzymatic Disease & activity/volume] in Nutrition Serum or Plasma [facility] ) Alkaline 38 IU/L 39-117 Below low normal MEDENT phosphatase (Digestive [Enzymatic Disease & activity/volume] in Nutrition Serum or Plasma [facility] ) Bilirubin.conjugate 0.09 0.00-0. MEDENT d [Mass/volume] in mg/dL 40 (Digestive Serum or Plasma Disease & Nutrition [facility] ) ID Date Data Source [id number] 09/21/2019 03:12:00 PM EDT MEDENT (Diges tive Disease & Nutrition [facility]) Name Value Range Interpretation Description Data Sup porting Code Source(s) Document(s ) Alpha-1-fe Laboratory MEDENT toprotein. test result (Digestive tumor Disease & marker Nutrition [Mass/volu Center of in] in [place]) Serum or Plasma ID Date Data Source [id number] 09/21/2019 03:12:00 PM EDT MEDENT (Diges tive Disease & Nutrition [facility]) Name Value Range Interpretation Description Data Sup porting Code Source(s) Document(s ) Laboratory Laboratory MEDENT test finding test result (Digestive (navigational Disease & concept) Nutrition [facility] ) ID Date Data Source [id number] 09/21/2019 02:17:00 PM EDT MEDENT (Diges tive Disease & Nutrition [facility]) Name Value Range Interpretation Description Data Sup porting Code Source(s) Document(s ) Laboratory Laboratory Normal (applies MEDENT test finding test result to non-numeric (Digestive (navigational results) Disease & concept) Nutrition [facility] ) SEE COMMENT ABOVE Laboratory test Laboratory test Normal (applies to MEDENT (Digestive finding (navigational result non-numeric Diseas e & Nutrition concept) results) [facility]) H.PYLORI,UREA BREATH TEST: Not Detected REFERENCE RANGE: Not Detected Antimicrobials, proton pump inhibitors, and bismuth preparations are known to suppress H. py jacqueline, and ingestion of these prior to H. pylori diagnostic t esting may lead to false negative results. If clinically in dicated, the test may be repeated on a new specimen obtain ed two weeks after discontinuing treatment. However, a posi tive result is still clinically valid. TEST PERFORMED AT: [address] [place] [address] Description: urea breath test Laboratory test Laboratory test Normal (applies to MEDENT (Digestive finding (navigational result non-numeric Diseas e & Nutrition concept) results) [facility]) H.PYLORI,UREA BREATH ID Date Data Source [id number] 09/21/2019 02:17:00 PM EDT MED[facility] ([facility] tive Disease & Nutrition [facility]) Name Value Range Interpretation Description Data Sup porting Code Source(s) Document(s ) Laboratory <pending> MEDENT test finding (Digestive (navigational Disease & concept) [facility]) ID Date Data Source [id number] 09/15/2019 10:09:00 AM EDT MEDENT ([facility] Disease & Nutrition [facility]) Name Value Range Interpretation Description Data Sup porting Code Source(s) Document(s ) Protein 7.9 6.0-8.5 MEDENT [Mass/volume] in g/dL (Digestive Serum or Plasma Disease & Nutrition [facility] ) Albumin 4.9 4.0-5.0 MEDENT [Mass/volume] in g/dL (Digestive Serum or Plasma Disease & Nutrition [facility] ) Bilirubin.total 0.3 0.0-1.2 MED[facility] [Mass/volume] in mg/dL (Digestive Serum or Plasma Disease & Nutrition [facility] ) Alkaline 36 IU/L 39-117 Below low normal MEDENT phosphatase (Digestive [Enzymatic Disease & activity/volume] in Nutrition Serum or Plasma [facility] ) Bilirubin.conjugate 0.13 0.00-0. MEDENT d [Mass/volume] in mg/dL 40 (Digestive Serum or Plasma Disease & Nutrition [facility] ) Alanine 41 IU/L 0-44 [facility] aminotransferase (Digestive [Enzymatic Disease & activity/volume] in Nutrition Serum or Plasma [facility] ) Aspartate 34 IU/L 0-40 [facility] aminotransferase (Digestive [Enzymatic Disease & activity/volume] in Nutrition Serum or Plasma [facility] ) ID Date Data Source [id number] 09/15/2019 10:09:00 AM EDT MEDENT ([facility] Disease & Nutrition [facility]) Name Value Range Interpretation Description Data Sup porting Code Source(s) Document(s ) Alpha-1-fe 1.4 ng/mL 0.0-8.3 MEDENT toprotein. (Digestive tumor Disease & marker Nutrition [Mass/volu Center of in] in [place]) Serum or Plasma [facility] Electrochemiluminescen ce Immunoassay (ECLIA) Values obtained with different assay met hods or kits cannot be used interchangeably. Results cannot be interpreted as absolute evidence of the presence or absence of m alignant disease. This test is not interpretable in pregna nt females. Laboratory test finding Laboratory test result MEDENT (Digestive Disease (navigational concept) & Nutri tion [facility]) Laboratory comment [Text] in Laboratory test result MEDENT (Digestive Disease Report Narrative & Nutrition [facility]) The date recorded on the requisition ind icates the sample(s) received were greater than 72 hours old upon arri alice in our laboratory. ID Date Data Source [id number] 09/15/2019 10:09:00 AM EDT MEDENT (Diges tive Disease & Nutrition [facility]) Name Value Range Interpretation Description Data Sup porting Code Source(s) Document(s ) Laboratory Laboratory MEDENT test finding test result (Digestive (navigational Disease & concept) Nutrition [facility] ) The quantifiable range of this assay is 12 to 100,000,000 IU/mL for genotypes 1-6 and the limit of detection of the assay is 12 IU/mL. Laboratory test finding Laboratory test result MEDENT (Digestive Disease (navigational concept) & Nutri tion [facility]) Laboratory test finding Laboratory test result MEDENT (Digestive Disease (navigational concept) & Nutri tion [facility]) See Final Results Laboratory test finding 6.962 xga37WN/mL MEDENT (Digestive Disease & (navigational concept) Nutriti on [facility]) Laboratory test finding [id number] IU/ml ME DENT (Digestive Disease & (navigational concept) Nutriti on [facility]) ID Date Data Source [id number] 09/15/2019 10:09:00 AM EDT MEDENT (Diges tive Disease & Nutrition [facility]) Name Value Range Interpretation Description Data Sup porting Code Source(s) Document(s ) Laboratory Laboratory MEDENT test finding test result (Digestive (navigational Disease & concept) Nutrition [facility] ) A lavender top tube was received with no test indicated Laboratory test finding Laboratory test result MEDENT (Digestive Disease (navigational concept) & Nutri tion [facility]) The requisition we received for the abov e patient has no test indicated on the request form for one or more of the specimens submitted. The [place] Code of Fe deral Regulations requires a written and signed request be forwarded to the testing laboratory following the verbal order of a laborato ry test. Date: ICD-9/10 Diagnosis Code(s): Physician or Authorized Designee Signatu re: Your signature confirms your order of th e test(s) listed Required test name(s): Required test number(s): Please provide requested information and fax to to expedite testing. ID Date Data Source [id number] 09/15/2019 10:09:00 AM EDT MEDENT (Diges tive Disease & Nutrition [facility]) Name Value Range Interpretation Description Data Sup porting Code Source(s) Document(s ) Laboratory Laboratory MEDENT test finding test result (Digestive (navigational Disease & concept) Nutrition [facility] ) ID Date Data Source [id number] 09/15/2019 10:09:00 AM EDT MEDENT (Diges tive Disease & Nutrition [facility]) Name Value Range Interpretation Description Data Sup porting Code Source(s) Document(s ) Protein 7.9 6.0-8.5 MEDENT [Mass/volume] in g/dL (Digestive Serum or Plasma Disease & Nutrition [facility] ) Albumin 4.9 4.0-5.0 MEDENT [Mass/volume] in g/dL (Digestive Serum or Plasma Disease & Nutrition [facility] ) Aspartate 34 IU/L 0-40 [facility] aminotransferase (Digestive [Enzymatic Disease & activity/volume] in Nutrition Serum or Plasma [facility] ) Bilirubin.total 0.3 0.0-1.2 MED[facility] [Mass/volume] in mg/dL (Digestive Serum or Plasma Disease & Nutrition [facility] ) Bilirubin.conjugate 0.13 0.00-0. MEDENT d [Mass/volume] in mg/dL 40 (Digestive Serum or Plasma Disease & Nutrition [facility] ) Alkaline 36 IU/L 39-117 Below low normal [facility] phosphatase (Digestive [Enzymatic Disease & activity/volume] in Nutrition Serum or Plasma [facility] ) Alanine 41 IU/L 0-44 MEDENT aminotransferase (Digestive [Enzymatic Disease & activity/volume] in Nutrition Serum or Plasma [facility] ) ID Date Data Source [id number] 09/15/2019 10:09:00 AM EDT MEDENT (Diges tive Disease & Nutrition [facility]) Name Value Range Interpretation Description Data Sup porting Code Source(s) Document(s ) Laboratory Laboratory MEDENT test finding test result (Digestive (navigational Disease & concept) Nutrition [facility] ) The quantifiable range of this assay is 12 to 100,000,000 IU/mL for genotypes 1-6 and the limit of detection of the assay is 12 IU/mL. Laboratory test finding Laboratory test result MEDENT (Digestive Disease (navigational concept) & Nutri tion [facility]) See Final Results Laboratory test finding [id number] IU/ml ME DENT (Digestive Disease & (navigational concept) Nutriti on [facility]) Laboratory test finding 6.962 kui47KN/mL MEDENT (Digestive Disease & (navigational concept) Nutriti on [facility]) ID Date Data Source [id number] 09/15/2019 10:09:00 AM EDT MEDENT (Diges tive Disease & Nutrition [facility]) Name Value Range Interpretation Description Data Sup porting Code Source(s) Document(s ) Laboratory Laboratory MEDENT test finding test result (Digestive (navigational Disease & concept) Nutrition [facility] ) This test was developed and its performa nce characteristics determined by [facility]. It has not been cleared or approved by the U.S. Food and Drug Administration. The FDA has determined that such clearan ce or approval is not necessary. This test is used for clinica l purposes. It should not be regarded as investigational or for resea [facility]. Laboratory test finding (navigational 3 MEDENT (Digestive Disease & concept) [facility]) ID Date Data Source [id number] 09/15/2019 10:09:00 AM EDT MEDENT (Diges tive Disease & Nutrition [facility]) Name Value Range Interpretation Description Data Sup porting Code Source(s) Document(s ) Alpha-1-fe 1.4 ng/mL 0.0-8.3 MEDENT toprotein. (Digestive tumor Disease & marker Nutrition [[facility] [place]) Serum or Plasma [facility] Electrochemiluminescen ce Immunoassay (ECLIA) Values obtained with different assay met hods or kits cannot be used interchangeably. Results cannot be interpreted as absolute evidence of the presence or absence of m alignant disease. This test is not interpretable in pregna nt females. Laboratory test finding Laboratory test result MEDENT (Digestive Disease (navigational concept) & Nutri tion [facility]) Laboratory comment [Text] in Laboratory test result MEDENT (Digestive Disease Report Narrative & Nutrition [facility]) The date recorded on the requisition ind icates the sample(s) received were greater than 72 hours old upon arri alice in our laboratory. Procedure Vital Signs ID Date Data Source UNK Name Value Range Interpretation Code Description Data Source(s) Body mass 20.6 kg/m2 20.6 kg/m2 MEDENT (Digest adriana index (BMI) Disease & [Ratio] Nutrition [facility] ) Body weight 120.00 120.00 [lb_av] MEDENT (D igestive [lb_av] Disease & Nutrition [facility] ) Body height 64 [in_i] 64 [in_i] MEDENT (Diges tive Disease & Nutrition [facility] [place] ) 5'4" Respiratory rate 13 /min 13 /min MEDENT ( Digestive Disease & Nutrition [facility]) Heart rate 57 /min 57 /min MEDENT (Digest adriana Disease & Nutrition [facility]) Diastolic blood pressure 74 mm[Hg] 74 mm[Hg] MEDENT (Digestive Disease & Nutrition [facility]) Systolic blood pressure 118 mm[Hg] 118 mm[Hg] M EDENT (Digestive Disease & Nutrition [facility]) Body mass index (BMI) 21.8 kg/m2 21.8 kg/m2 MED ENT (Digestive Disease [Ratio] & Nutrition [facility]) Body weight 127.00 [lb_av] 127.00 [lb_av] MEDEN T (Digestive Disease & Nutrition [facility]) Body height 64 [in_i] 64 [in_i] MEDENT (Diges tive Disease & Nutrition [facility]) 5'4" Respiratory rate 13 /min 13 /min MEDENT ( Digestive Disease & Nutrition [facility]) Heart rate 60 /min 60 /min MEDENT (Digest adriana Disease & Nutrition [facility]) Diastolic blood pressure 87 mm[Hg] 87 mm[Hg] [facility] Systolic blood pressure 129 mm[Hg] 129 mm[Hg] [facility] Respiratory rate 18 /min 18 /min [facility] Heart rate 73 /min 73 /min [facility] Body temperature 36.63380 Kamila 36.78119 Kamila [facility] Body temperature 98.0 [degF] 98.0 [degF] [facility] Body mass index (BMI) 22.0 kg/m2 22.0 kg/m2 i [facility] [Ratio] Body weight 129.85 [lb_av] 129.85 [lb_av] [facility]
--- NOTE | 2020-03-08 11:28 | BHS.RME ---
Substance Use & Tx History - Substance Use History Alcohol Substance amount: 2 glasses wine Frequency of use: Daily Substance route: Oral Date of Last Use: 03/08/20 (started age 10) Heroin Substance amount: 2 bundles Frequency of use: Daily Substance route: Injection (ex: intravenous or skin popping) Date of Last Use: 03/08/20 (started age 26) Nicotine Substance amount: 1 pack Frequency of use: Daily Substance route: Smoking Date of Last Use: 03/08/20 (started age 11) Physical/Psych/Mental Status - Behavior General Behavior: Increased activity (restlessness, agitation) Eye Contact: Normal - Cooperativeness Cooperativeness: Cooperative - Thinking Thought Processes: Tight, Logical, Goal Directed - Physical Health Problems Is patient presently having any pain?: No Does patient presently have any injuries (include location): No Does patient currently have a fever: No Is patient : No
[2020-03-08 12:03] VITALS: BMI 21.2
--- NOTE | 2020-03-08 12:59 | HP ---
CIWA Score - Admission Criteria [facility]ASAS Guidelines: Admission for Medically Managed Detox: Requires at least one of the followin. CIWA greater than 12 2. Seizures within the past 24 hours 3. Delirium tremens within the past 24 hours 4. Hallucinations within the past 24 hours 5. Acute intervention needed for co occurring medical disorder 6. Acute intervention needed for co occurring psychiatric disorder 7. Severe withdrawal that cannot be handled at a lower level of care (continued vomiting, continued diarrhea, abnormal vital signs) requiring intravenous medication and/or fluids 8. Admitting History and Physical - Admission Chief Complaint: Mr. Schuler is a 50 yo gentleman who presents to [facility] requesting detox from opioids. History of Present Illness: Mr. Schuler is a 50 yo gentleman who presents to [facility] requesting detox from opioids. He was here years ago, completed detox in 2017. He relaspsed about 2 months ago, which he attributes to problems with his Suboxone prescription. Prior Suboxone 8 mg bid. PMH: spoinal stenosis cervical with index and thumb numbness, OA, treated Hep C PSH: appy Psych: bipolar on [place] 300 bid, last dose taken today, ADHD on methylphenidate SoC: lives in his own home with GF Legal: none COWS= 12 Original Note: Substance Use & Tx History - Substance Use History Alcohol Substance amount: 2 glasses wine Frequency of use: Daily Substance route: Oral Date of Last Use: 03/08/20 (started age 10) Heroin Substance amount: 2 bundles Frequency of use: Daily Substance route: Injection (ex: intravenous or skin popping) Date of Last Use: 03/08/20 (started age 26) Nicotine Substance amount: 1 pack Frequency of use: Daily Substance route: Smoking Date of Last Use: 03/08/20 (started age 11) Suboxone: took some of his GFs Raúl Schuler, 1970 Search Date: 03/08/2020 13:00:15 PM The Drug Utilization Report below displays all of the controlled substance prescriptions, if any, that your patient has filled in the last twelve months. The information displayed on this report is compiled from pharmacy submissions to the Department, and accurately reflects the information as submitted by the pharmacies. This report was requested by: Lauren Cutler | Reference #: [id number] Others' Prescriptions Patient Name: Raúl Schuler Date: 1970 Address: [address] [place] [address] Sex: Male Rx Written Rx Dispensed Drug Quantity Days Supply Prescriber Name 02/23/2020 02/25/2020 hydrocodone-acetaminophen 5-325 mg tablet 7 7 Netta Jon MD 02/22/2020 02/22/2020 methylphenidate 20 mg tablet 30 30 Sim Webb MD 02/14/2020 02/15/2020 methylphenidate er 54 mg tab 30 30 Sim Webb MD 02/14/2020 02/15/2020 methylphenidate 10 mg tablet 30 30 Sim Webb MD 09/20/2019 01/12/2020 buprenorphine-naloxone 8-2 mg sl film 60 30 Milly Bertrand 01/12/2020 01/12/2020 methylphenidate 10 mg tablet 30 30 Sim Webb MD 01/12/2020 01/12/2020 methylphenidate er 54 mg tab 30 30 Sim Webb MD 12/13/2019 12/14/2019 methylphenidate 10 mg tablet 30 30 Trent Sparks S () 12/13/2019 12/14/2019 methylphenidate er 54 mg tab 30 30 Trent Sparks S () 06/28/2019 11/15/2019 buprenorphine-naloxone 8-2 mg sl film 60 30 Milly Bertrand NP 11/13/2019 11/15/2019 methylphenidate 10 mg tablet 30 30 Sim Webb MD 11/13/2019 11/15/2019 methylphenidate er 54 mg tab 30 30 Sim Webb MD 08/22/2019 10/18/2019 buprenorphine-naloxone 8-2 mg sl film 60 30 Milly Bertrand PHARMACY HELPER 10/10/2019 10/18/2019 methylphenidate 10 mg tablet 30 30 Sim Webb MD 10/10/2019 10/18/2019 methylphenidate er 54 mg tab 30 30 Sim Webb MD 09/20/2019 09/21/2019 buprenorphine-naloxone 8-2 mg sl film 60 30 Milly Bertrand NP 09/20/2019 09/21/2019 methylphenidate 10 mg tablet 30 30 Milly Bertrand PHARMACY HELPER 09/20/2019 09/21/2019 methylphenidate er 54 mg tab 30 30 Milly Bertrand NP 08/22/2019 08/24/2019 methylphenidate 10 mg tablet 30 30 Milly Bertrand PHARMACY HELPER 08/22/2019 08/24/2019 buprenorphine-naloxone 8-2 mg sl film 60 30 Faye Bertrand PHARMACY HELPER History Source: Patient Limitations to Obtaining History: No Limitations - Smoking History Smoking history: Current every day smoker Have you smoked in the past 12 months: Yes Aproximately how many cigarettes per day: 20 - Alcohol/Substance Use Hx Alcohol Use: Yes (BEER/VODKA SPORADICALLY BUT NOT CURRENTLY DRINKING) Admission [facility] Allergies/Adverse Reactions: Allergies Allergy/AdvReac Type Severity Reaction Status Date / Time Penicillins Allergy Intermediate Swelling Verified 03/08/20 12:32 Exam Limitations: No Limitations - Ebola screening Have you traveled outside of the country in the last 21 days: No Have you been sick,other than usual withdrawal symptoms: No Do you have a fever: No - Review of Systems Constitutional: No Symptoms Reported EENT: reports: No Symptoms Reported Respiratory: reports: No Symptoms reported Cardiac: reports: No Symptoms Reported GI: reports: Nausea : reports: No Symptoms Reported Musculoskeletal: reports: Joint Pain (chronic left shoulder and low back pain) Integumentary: reports: No Symptoms Reported, Other (psoriasis on knees, improved with Hep C tx. Bruise on forehead, banged head on arm of a bench) Neuro: reports: No Symptoms reported Endocrine: reports: No Symptoms Reported Hematology: reports: No Symptoms Reported Psychiatric: reports: Anxious Patient History - Patient Medical History Hx Anemia: No Hx Asthma: No Hx Chronic Obstructive Pulmonary Disease (COPD): No Hx Cancer: No Hx Cardiac Disorders: No Hx Congestive Heart Failure: No Hx Hypertension: No Hx Hypercholesterolemia: No Hx Pacemaker: No HX Cerebrovascular Accident: No Hx Seizures: No Hx Diabetes: No Hx Gastrointestinal Disorders: No Hx Liver Disease: Yes (Hx enzyme elevations chronic ) Hx Genitourinary Disorders: No Hx Sexually Transmitted Disorders: No Hx Renal Disease (ESRD): No Hx Thyroid Disease: No Hx Human Immunodeficiency Virus (HIV): No Hx Hepatitis C: No (NOT SURE) Hx Depression: Yes Hx Suicide Attempt: No Hx Bipolar Disorder: Yes Hx Schizophrenia: No - Patient Surgical History Past Surgical History: Yes Hx Neurologic Surgery: No Hx Cataract Extraction: No Hx Cardiac Surgery: No Hx Lung Surgery: No Hx Breast Surgery: No Hx Breast Biopsy: No Hx Abdominal Surgery: No Hx Appendectomy: Yes (1989) Hx Cholecystectomy: No Hx Genitourinary Surgery: No Hx Section: No Hx Orthopedic Surgery: No Other Surgical History: Sx both ears "long time ago" Anesthesia Reaction: No - PPD History Previous Implant?: Yes Documented Results: Negative w/proof Date: 12/24/16 Results: 0 - Smoking Cessation Smoking history: Current every day smoker Have you smoked in the past 12 months: Yes Aproximately how many cigarettes per day: 20 Hx Chewing Tobacco Use: No Initiated information on smoking cessation: Yes 'Breaking Loose' booklet given: 03/08/20 Admission Physical Exam [facility] - Vital Signs Vital Signs: Vital Signs - 24 hr 03/08/20 11:43 Temperature 97.3 F L Pulse Rate 79 Respiratory 18 Rate Blood Pressure 108/72 - Physical General Appearance: Yes: No Apparent Distress, Nourished, Appropriately Dressed, Anxious HEENTM: Yes: EOMI, Hearing grossly Normal, Normocephalic, Normal Voice, Other (bruise right frontal ~2" blackish discoloration) Respiratory: Yes: Lungs Clear, No Respiratory Distress, No Accessory Muscle Use Neck: Yes: Within Normal Limits, Other (reduced range of motion with left lateral rotation) Breast: Yes: Breast Exam Deferred Cardiology: Yes: Regular Rhythm, Regular Rate Abdominal: Yes: Normal Bowel Sounds, Non Tender, Flat, Soft Genitourinary: Yes: Other (deferred) Back: Yes: Normal Inspection Musculoskeletal: Yes: Gait Steady, Other (normal strength) Extremities: Yes: Normal Inspection, Non-Tender Neurological: Yes: Alert, Normal Response Integumentary: Yes: Other (scar right forearm, old injury) Lymphatic: Yes: Other (nontender) - Diagnostic (1) Spinal stenosis in cervical region Current Visit: No Status: Chronic (2) Opioid dependence with withdrawal Current Visit: Yes Status: Acute (3) Alcohol dependence, episodic drinking behavior Current Visit: Yes Status: Acute (4) Bipolar disorder Current Visit: Yes Status: Chronic Comment: History reported by patient.No compliant with medications for months. (5) Nicotine dependence Current Visit: Yes Status: Acute Qualifiers: Nicotine product type: cigarettes Substance use status: in withdrawal Qualified Code(s): F17.213 - Nicotine dependence, cigarettes, with withdrawal Cleared for Admission [facility] - Detox or Rehab [facility] Level of Care: Medically Managed Detox Regimen/Protocol: Methadone Breathalyzer - Breathalyzer Breathalyzer: 0 Urine Drug Screen - Test Device Lot number: [id number] Expiration date: 09/05/21 - Control Is test valid?: Yes - Results Drug screen NEGATIVE: No Urine drug screen results: FEN-Fentanyl, BUP-Suboxone Inpatient Rehab Admission - Rehab Decision to Admit Inpatient rehab admission?: No
[2020-03-08] MEDS ORDERED: METHADONE HCL 10 MG TABLET (FOR DETOX USE ONLY) PO ONE (13:08)
[2020-03-08] MEDS ORDERED: ONDANSETRON *ODT* 4 MG TABLET SL PRN (13:08)
[2020-03-08] MEDS ORDERED: MENTHOL/PHENOL 1 EACH UD MM PRN (13:08)
[2020-03-08] MEDS ORDERED: MAG HYDROX/AL HYDROX/SIMETH 30 ML UNIT-DOSE CUP PO PRN (13:08)
[2020-03-08] MEDS ORDERED: cloNIDine HCL 0.1 MG TABLET PO PRN (13:08)
[2020-03-08] MEDS ORDERED: IBUPROFEN 400 MG TABLET (FP) PO PRN (13:08)
[2020-03-08] MEDS ORDERED: ACETAMINOPHEN 325 MG TABLET (FP) PO PRN (13:08)
[2020-03-08] MEDS ORDERED: BISMUTH SUBSALICYLATE 262 MG/15 ML BTL PO PRN (13:08)
[2020-03-08] MEDS ORDERED: MAGNESIUM HYDROX 2400MG/30ML ORAL SUSPENSION 30 ML CUP PO PRN (13:08)
[2020-03-08] MEDS ORDERED: NICOTINE POLACRILEX 2 MG GUM BUC PRN (13:08)
[2020-03-08] MEDS ORDERED: MAGNESIUM CITRATE 300 ML BOTTLE PO PRN (13:08)
--- OUTSIDE RECORDS SUMMARY | 2020-03-08 13:34 | XMS ---
:1970 Author Organization [facility] Care Team Providers Name Role Phone Johnathon Tapia MD Unavailable Unavailable Dejah Bo VISITOR SERVICES REPRESENTATIVE Unavailable Unavailable [facility] Unavailable Unavailable Peris, D [...] is protected by Article 27-F of the [facility] Public Health law. If you continue you may haveaccess to information: Regarding HIV / AIDS; Provided by facilities licensed or operated by the [facility] Office of Mental Health; or Provided by the [facility] Office for People With Developmental Disabilities. If such information is present, then the following [facility] mandated warning applies: This information has been [...] law may result in a fine or shelter sentence or both. A general authorization for the release of medical or other information is NOT sufficient authorization for further disclosure. Allergies and Adverse Reactions Type Description Substance Reaction Status Data Source(s ) 3 PENICILLINS PENICILLINS NEXTGEN ([facility]) Encounters Encounter Providers Location Date Indications Data Source(s ) Outpatient Attender: NARAYAN 03/04/2020 [facility] ([facility] 05:45:24 PM [facility]T [facility]) Patient admitted. Outpatient Attender: Omar 02/27/2020 03:15:00 PM NEXTGEN ([facility] PerisReferrer: MARY LOU GROSS [facility]T [facility]) Outpatient Attender: TRES PIEDRAS 02/23/2020 12:45:00 PM NEXTGEN ([facility] GROSSReferrer: MARY LOU GROSS [facility]) Outpatient Attender: MARY LOU DE LOS SANTOS 02/15/2020 03:53:00 PM NEXTGEN ([facility] Outpatient Attender: MARY LOU 02/09/2020 10:15:00 AM NEXTGEN ([facility] GROSSReferrer: MARY LOU GROSS EDT [facility]) Outpatient Attender: Yobani 02/06/2020 05:15:00 PM NEXTGEN ([facility] NeptuneReferrer: Jehye EDT Ne dical - [facility]) Outpatient Attender: [place] [facility] 12/30/2019 12:54:19 PM [facility] ([facility] EDT [facility]) Patient admitted. Outpatient Attender: Digestive 12/07/2019 MEDENT ([facility] & 09:40:00 AM EDT Diseas e & Nutrition Nutrition [facility] ) Outpatient Attender: Digestive 10/09/2019 MEDENT ([facility] & 03:10:00 PM EDT Diseas e & Nutrition Nutrition [facility] ) Outpatient Attender: Digestive 09/21/2019 MEDENT ([facility] ad[facility] & 02:30:00 PM EDT Diseas e & Nutrition Nutrition [facility] ) Outpatient Attender: Digestive 09/14/2019 MEDENT ([facility] ad[facility] & 10:10:00 AM EDT Diseas e & Nutrition Nutrition [facility] ) Outpatient Attender: Dejah 09/06/2019 [facility] eber Bo 08:00:00 AM EDT [facility] [place] Attender: MHAW9 [facility] 08/18/2019 07:05:55 AM [facility] ([facility] Care EDT Collaborative) Patient admitted. Unlisted evaluation 08/02/2019 NETS ART (Mental and management 08:00:00 PM EST [facility] ) Emergency Attender: Johnathon 07/16/2019 ANNETTE Tapia MD 08:25:00 PM [facility] 07/16[facility]2019 " [place] 10:34:00 PM EST FB "[facility]" [place] Patient discharged. Outpatient Attender: Dejah Bo 06/08/2019 11:48:00 AM F/ U [facility] EST F/U Outpatient 03/27/2019 02:19:00 PM EDT [...] admitted. Outpatient 03/27/2019 02:18:23 PM EDT [facility] ([facility]) Patient admitted. Medications Medication Brand Start Product Dose Route Administrative Pharmacy St atus Indications Reaction Description Data Name Date Form Instructions Instructions Source(s) Methylpheni RITALI RP NEXTGE N date N ([facility] Hydro[facility]i Medical - [facility] ) mg 5 mg This may be an active medication. No end date is available. Start date above may not reflect actual date the medication was s tarted. Acetaminophen 325 NORCO 02/23/2020 take 1 RP NEXTGEN MG / Hydrocodone 12:00:00 AM EDT tablet by ([facility] Bitartrate 5 MG oral route Medical - Mt Oral Tablet [[place]] every day as [facility] 5 mg-325 [...] Extended Associat ion Release Oral of Tablet [place]) Methylphenidate Methylphenidate 01/12/2020 1.0 Oral active NETSMART Hydrochloride 10 HCl 04:00:00 AM Tablet (Mental MG Oral Tablet EDT [facility]) Rains Rains 01/12/2020 2.0 Oral active N ETSMART Carbonate 450 MG Carbonate 04:00:00 AM Tablet (Mental Extended Release EDT Hea lth Oral Tablet Associat ion [facility]) 24 HR Methylphenidate 12/13/2019 1.0 Oral active NETSMART Methylphenidate HCl 04:00:00 AM Tablet (Mental Hydrochloride 54 EDT Hea lth MG Extended Associat ion Release Oral of Tablet [place]) Methylphenidate Methylphenidate 12/13/2019 1.0 Oral active NETSMART Hydrochloride 10 HCl 04:00:00 AM Tablet [facility] Rains Rains 12/13/2019 2.0 Oral active N ETSMART Carbonate 450 MG Carbonate 04:00:00 AM Tablet (Mental Extended Release EDT Hea lth Oral Tablet [facility]) Methylphenidate 11/13/2019 1.0 Oral active NETSMART HCl 04:00:00 AM Tablet ([facility]) Rains Rains 11/13/2019 2.0 Oral active N ETSMART Carbonate 450 MG Carbonate 04:00:00 AM Tablet (Mental Extended Release EDT Hea lth Oral Tablet [facility]) Methylphenidate Methylphenidate 11/13/2019 1.0 Oral active NETSMART Hydrochloride 10 HCl 04:00:00 AM Tablet (Mental MG Oral Tablet [facility]) Methylphenidate Methylphenidate 10/10/2019 1.0 Oral active NETSMART Hydrochloride 10 HCl 04:00:00 AM Tablet (Mental MG Oral Tablet [facility]) Methylphenidate 10/10/2019 1.0 Oral active NETSMART HCl 04:00:00 AM Tablet (Menta l [facility]) Rains Rains 10/10/2019 2.0 Oral active N ETSMART Carbonate 450 MG Carbonate 04:00:00 AM Tablet (Mental Extended Release EDT [facility] Mavyret Mavyret 10/09/2019 ORAL active M EDENT 12:00:00 AM (Digesti ve [facility] Disease & Nutrition Center [facility]) magnesium Magnesium 07/16/2019 SOLUT 296 mL ORAL active [place] citrate 58.2 Citrate 10:28:00 PM ION Hospital MG/ML Oral EST Solution [Citroma] Magnesium Citrate sennosides, ASSISTED Sennosides 07/16/2019 TABLE 1 ORAL active [place] 8.6 MG Oral 10:28:00 PM T {Capsul Hospital Tablet EST e} Sennosides Docusate Sodium Docusate Sodium 07/16/2019 CAPSU 1 ORAL active [place] 100 MG Oral 10:28:00 PM LE {Capsul Hospital Capsule EST e} Insurance Providers Payer name Policy type Policy ID Covered Covered republican's Policy P angeline / Coverage republican ID relationship to [place] Inf ormation type rocha [facility] MEDICAID [id number] SP [id number] O [facility] Medicaid [id number] 1 [id number] And Child Health Plus [place] [id number] PT [id number] [facility] [id number] PT [id number] [facility] MEDICAID [id number] Medicaid [id number] Regular Clinic Visit Problems, Conditions, and Diagnoses Code Display Name Description Problem Type Effective Data Sour ce(s) Dates [id number] Bipolar I disorder Bipolar I Complaint 08/01/2019 NETSMA RT disorder 08:00:00 PM ([facility] Healt h EST [facility]) M48.02 Spinal stenosis, Cervical Diagnosis 02/23/2020 NEXTGEN cervical region stenosis of 12:45:00 PM ([facility] spinal canal [facility]) M54.12 Radiculopathy, Cervical Diagnosis 02/09/2020 NEXTGEN cervical region radiculopathy 10:15:00 AM ([facility]) M25.512 Pain in left shoulder Pain in left Diagnosis 02/06/2020 N EXTGEN shoulder 05:15:00 PM ([facility] EDT [facility]) M25.511 Pain in right Acute pain of Diagnosis 02/06/2020 NEXTGEN shoulder both shoulders 05:15:00 PM ([facility]) M54.2 Cervicalgia Neck pain Diagnosis 02/06/2020 NEXTGEN 05:15:00 PM ([facility] EDT [facility]) F17.200 Nicotine dependence, F17.200 Diagnosis 09/06/2019 [place] unspecified, 08:00:00 AM Hospital uncomplicated EDT R21 Rash and other R21 Diagnosis 09/06/2019 [place] nonspecific skin 08:00:00 AM Hospita l eruption EDT F31.9 Bipolar disorder, F31.9 Diagnosis 09/06/2019 [place] unspecified 08:00:00 AM Hospital EDT M54.9 Dorsalgia, M54.9 Diagnosis 09/06/2019 [place] unspecified 08:00:00 AM Hospital EDT M25.519 Pain in unspecified M25.519 Diagnosis 09/06/2019 [place] shoulder 08:00:00 AM Hospital EDT B18.2 Chronic viral B18.2 Diagnosis 09/06/2019 [place] hepatitis C 08:00:00 AM Hospital EDT L40.9 Psoriasis, L40.9 Diagnosis 09/06/2019 [place] unspecified 08:00:00 AM Hospital EDT K59.00 Constipation, K59.00 Diagnosis 07/16/2019 [place] unspecified 08:41:00 PM Hospital EST E78.1 Pure E78.1 Diagnosis 06/08/2019 [place] hyperglyceridemia 11:48:00 AM Hospit al EST Surgeries/Procedures Procedure Description Date Indications Data Source(s) OFFICE CONSULTATION OFFICE CONSULTATION 02/27/2020 N EXTGEN ([facility] 12:00:00 AM [facility]) OFFICE/OUTPATIENT OFFICE/OUTPATIENT 02/23/2020 NEXTG EN ([facility] VISIT EST VISIT EST 12:00:00 AM [facility]) OFFICE CONSULTATION OFFICE CONSULTATION 02/09/2020 N EXTGEN ([facility] 12:00:00 AM [facility] Pelvis X-ray 07/16/2019 [place] (procedure) 12:00:00 AM Hospital EST Results ID Date Data Source [id number] 12/07/2019 10:36:00 AM EDT MEDENT ([facility] tive Disease & Nutrition [facility]) Name Value Range Interpretation Description Data Sup porting Code Source(s) Document(s ) Laboratory Laboratory MEDENT test finding test result (Digestive (navigational Disease & concept) Nutrition [facility] ) ID Date Data Source [id number] 12/07/2019 10:36:00 AM EDT MEDENT ([facility] tive Disease & Nutrition [facility]) Name Value Range Interpretation Description Data Sup porting Code Source(s) Document(s ) Laboratory 471 IU/ml MEDENT test finding (Digestive (navigational Disease & concept) Nutrition [facility] ) Laboratory Laboratory MEDENT test finding test result (Digestive (navigational Disease & concept) [facility] ) The quantifiable range of this assay is 12 to 100,000,000 IU/mL for genotypes 1-6 and the limit of detection of the assay is 12 IU/mL. Laboratory test finding 2.673 [id number]/mL MEDENT (Digestive Disease & (navigational concept) Nutriti on [facility]) ID Date Data Source [id number] 12/07/2019 10:36:00 AM EDT MEDENT ([facility] Disease & Nutrition [facility]) Name Value Range Interpretation Description Data Sup porting Code Source(s) Document(s ) Bilirubin.total 0.3 0.0-1.2 MEDENT [Mass/volume] in mg/dL (Digestive Serum or Plasma Disease & Nutrition [facility] ) Protein 7.8 6.0-8.5 MEDENT [Mass/volume] in g/dL (Digestive Serum or Plasma Disease & Nutrition [facility] ) Albumin 4.7 4.0-5.0 MEDENT [Mass/volume] in g/dL (Digestive Serum or Plasma Disease & Nutrition [facility] ) Aspartate 27 IU/L 0-40 MED[facility] aminotransferase (Digestive [Enzymatic Disease & activity/volume] in Nutrition Serum or Plasma [facility] ) Alanine 31 IU/L 0-44 MED[facility] aminotransferase (Digestive [Enzymatic Disease & activity/volume] in Nutrition Serum or Plasma [facility] ) Alkaline 38 IU/L 39-117 Below low normal MEDENT phosphatase (Digestive [Enzymatic Disease & activity/volume] in Nutrition Serum or Plasma [facility] ) Bilirubin.conjugate 0.09 0.00-0. MEDENT d [Mass/volume] in mg/dL 40 (Digestive Serum or Plasma Disease & Nutrition [facility] ) ID Date Data Source [id number] 09/21/2019 03:12:00 PM EDT MEDENT (Diges tive Disease & Nutrition [facility]) Name Value Range Interpretation Description Data Sup porting Code Source(s) Document(s ) Alpha-1-fe Laboratory MEDENT toprotein. test result (Digestive tumor Disease & marker Nutrition [Mass/volu Center of co] in [place]) Serum or Plasma ID Date Data Source [id number] 09/21/2019 03:12:00 PM EDT MEDENT ([facility] tive Disease & Nutrition [facility]) Name Value Range Interpretation Description Data Sup porting Code Source(s) Document(s ) Laboratory Laboratory MEDENT test finding test result (Digestive (navigational Disease & concept) Nutrition [facility] ) ID Date Data Source [id number] 09/21/2019 02:17:00 PM EDT MEDENT ([facility] tive Disease & Nutrition [facility]) Name Value Range Interpretation Description Data Sup porting Code Source(s) Document(s ) Laboratory Laboratory Normal (applies MEDENT test finding test result to non-numeric (Digestive (navigational results) Disease & concept) [facility] ) SEE COMMENT ABOVE Laboratory test Laboratory test Normal (applies to MEDENT (Digestive finding (navigational result non-numeric Diseas e & Nutrition concept) results) [facility]) H.PYLORI,UREA BREATH TEST: Not Detected REFERENCE [...] is still clinically valid. TEST PERFORMED AT: [employer] [place] [id number] Description: urea breath test Laboratory test Laboratory test Normal (applies to MEDENT (Digestive finding (navigational result non-numeric Diseas e & Nutrition concept) results) [facility]) H.PYLORI,UREA BREATH ID Date Data Source [id number] 09/21/2019 02:17:00 PM EDT MEDENT ([facility] tive Disease & Nutrition [facility]) Name Value Range Interpretation Description Data Sup porting Code Source(s) Document(s ) Laboratory <pending> MEDENT test finding (Digestive (navigational Disease & concept) [facility]) ID Date Data Source [id number] 09/15/2019 10:09:00 AM EDT MEDENT ([facility] Disease & Nutrition [facility]) Name Value Range Interpretation Description Data Sup porting Code Source(s) Document(s ) Protein 7.9 6.0-8.5 MEDENT [Mass/volume] in g/dL (Digestive Serum or Plasma Disease & Nutrition [facility] ) Albumin 4.9 4.0-5.0 MEDENT [Mass/volume] in g/dL (Digestive Serum or Plasma Disease & Nutrition [facility] ) Bilirubin.total 0.3 0.0-1.2 MEDENT [Mass/volume] in mg/dL (Digestive Serum or Plasma Disease & Nutrition [facility] ) Alkaline 36 IU/L 39-117 Below low normal MEDENT phosphatase (Digestive [Enzymatic Disease & activity/volume] in Nutrition Serum or Plasma [facility] ) Bilirubin.conjugate 0.13 0.00-0. MEDENT d [Mass/volume] in mg/dL 40 (Digestive Serum or Plasma Disease & Nutrition [facility] ) Alanine 41 IU/L 0-44 MED[facility] aminotransferase (Digestive [Enzymatic Disease & activity/volume] in Nutrition Serum or Plasma [facility] ) Aspartate 34 IU/L 0-40 MEDENT aminotransferase (Digestive [Enzymatic Disease & activity/volume] in Nutrition Serum or Plasma [facility] ) ID Date Data Source [id number] 09/15/2019 10:09:00 AM EDT MEDENT ([facility] tive Disease & Nutrition [facility]) Name Value Range Interpretation Description Data Sup porting Code Source(s) Document(s ) Alpha-1-fe 1.4 ng/mL 0.0-8.3 MEDENT toprotein. (Digestive tumor Disease & marker Nutrition [Mass/volu Center of co] in [place]) Serum or Plasma [facility] Electrochemiluminescen ce Immunoassay (ECLIA) Values obtained with different assay met hods or kits cannot be used interchangeably. Results cannot be interpreted as absolute evidence of the presence or absence of m alignant disease. This test is not interpretable in pregna nt females. Laboratory test finding Laboratory test result MEDENT (Digestive Disease (navigational concept) & Nutri tion [facility]) Laboratory comment [Text] in Laboratory test result MEDENT (Digestive Disease Report Narrative & Nutrition C [facility]) The date recorded on the requisition ind icates the sample(s) received were greater than 72 hours old upon arri alice in our laboratory. ID Date Data Source [id number] 09/15/2019 10:09:00 AM EDT [facility] (Diges tive Disease & Nutrition [facility]) Name Value Range Interpretation Description Data Sup porting Code Source(s) Document(s ) Laboratory Laboratory MEDENT test finding test result (Digestive (navigational Disease & concept) Nutrition [facility] ) The quantifiable range of this assay is 12 to 100,000,000 IU/mL for genotypes 1-6 and the limit of detection of the assay is 12 IU/mL. Laboratory test finding Laboratory test result MEDENT (Digestive Disease (navigational concept) & Nutri tion [facility]) Laboratory test finding Laboratory test result MEDENT (Digestive Disease (navigational concept) & Nutri tion [facility]) See Final Results Laboratory test finding 6.962 tde19SB/mL MEDENT (Digestive Disease & (navigational concept) Nutriti on [facility]) Laboratory test finding [id number] IU/ml ME DENT (Digestive Disease & (navigational concept) Nutriti on [facility]) ID Date Data Source [id number] 09/15/2019 10:09:00 AM EDT MED[facility] (Diges tive Disease & Nutrition [facility]) Name Value Range Interpretation Description Data Sup porting Code Source(s) Document(s ) Laboratory Laboratory MEDENT test finding test result (Digestive (navigational Disease & concept) Nutrition [facility] ) A lavender top tube was received with no test indicated Laboratory test finding Laboratory test result MEDENT (Digestive Disease (navigational concept) & Nutri tion [facility]) The requisition we received for the [...] to expedite testing. ID Date Data Source [id number] 09/15/2019 10:09:00 AM EDT MEDENT (Diges tive Disease & Nutrition [facility]) Name Value Range Interpretation Description Data Sup porting Code Source(s) Document(s ) Laboratory Laboratory MEDENT test finding test result (Digestive (navigational Disease & concept) Nutrition [facility] ) ID Date Data Source [id number] 09/15/2019 10:09:00 AM EDT [facility] (Diges tive Disease & Nutrition [facility] [place]) Name Value Range Interpretation Description Data Sup porting Code Source(s) Document(s ) Protein 7.9 6.0-8.5 MEDENT [Mass/volume] in g/dL (Digestive Serum or Plasma Disease & Nutrition [facility] ) Albumin 4.9 4.0-5.0 MEDENT [Mass/volume] in g/dL (Digestive Serum or Plasma Disease & Nutrition [facility] ) Aspartate 34 IU/L 0-40 MEDENT aminotransferase (Digestive [Enzymatic Disease & activity/volume] in Nutrition Serum or Plasma [facility] ) Bilirubin.total 0.3 0.0-1.2 MEDENT [Mass/volume] in mg/dL (Digestive Serum or Plasma Disease & Nutrition [facility] ) Bilirubin.conjugate 0.13 0.00-0. MEDENT d [Mass/volume] in mg/dL 40 (Digestive Serum or Plasma Disease & Nutrition [facility] ) Alkaline 36 IU/L 39-117 Below low normal MEDENT phosphatase (Digestive [Enzymatic Disease & activity/volume] in Nutrition Serum or Plasma [facility] ) Alanine 41 IU/L 0-44 MEDENT aminotransferase (Digestive [Enzymatic Disease & activity/volume] in Nutrition Serum or Plasma [facility] ) ID Date Data Source [id number] 09/15/2019 10:09:00 AM EDT MEDENT ([facility] ti Disease & Nutrition [facility]) Name Value Range Interpretation Description Data Sup porting Code Source(s) Document(s ) Laboratory Laboratory MEDENT test finding test result (Digestive (navigational Disease & concept) Nutrition [facility] ) The quantifiable range of this assay is 12 to 100,000,000 IU/mL for genotypes 1-6 and the limit of detection of the assay is 12 IU/mL. Laboratory test finding Laboratory test result MEDENT (Digestive Disease (navigational concept) & Nutri tion [facility]) See Final Results Laboratory test finding [id number] IU/ml ME DENT (Digestive Disease & (navigational concept) Nutriti on [facility]) Laboratory test finding 6.962 rin42GF/mL MEDENT (Digestive Disease & (navigational concept) Nutriti on [facility]) ID Date Data Source [id number] 09/15/2019 10:09:00 AM EDT MED[facility] (Diges tive Disease & Nutrition [facility]) Name Value Range Interpretation Description Data Sup porting Code Source(s) Document(s ) Laboratory Laboratory MEDENT test finding test result (Digestive (navigational Disease & concept) Nutrition [facility] ) This test was developed and its performa nce characteristics determined by [facility]. It has not been cleared or approved by the U.S. Food and Drug Administration. The FDA has determined that such clearan ce or approval is not necessary. This test is used for clinica l purposes. It should not be regarded as investigational or for resea [facility]. Laboratory test finding (navigational [facility] (Digestive Disease & concept) [facility]) ID Date Data Source [id number] 09/15/2019 10:09:00 AM EDT [facility] (Diges tive Disease & Nutrition [facility]) Name Value Range Interpretation Description Data Sup porting Code Source(s) Document(s ) Alpha-1-fe 1.4 ng/mL 0.0-8.3 MEDENT toprotein. (Digestive tumor Disease & marker Nutrition [Mass/volu Center of co] in [place]) Serum or Plasma [facility] Electrochemiluminescen ce Immunoassay (ECLIA) Values obtained with different assay met hods or kits cannot be used interchangeably. Results cannot be interpreted as absolute evidence of the presence or absence of m alignant disease. This test is not interpretable in pregna nt females. Laboratory test finding Laboratory test result MEDENT (Digestive Disease (navigational concept) & Nutri tion Center [facility]) Laboratory comment [Text] in Laboratory test result MEDENT (Digestive Disease Report Narrative & Nutrition C [facility]) The date recorded on the requisition ind icates the sample(s) received were greater than 72 hours old upon arri alice in our laboratory. Procedure Vital Signs ID Date Data Source UNK Name Value Range Interpretation Code Description Data Source(s) Body mass 20.6 kg/m2 20.6 kg/m2 MEDENT (Digest adriana index (BMI) Disease & [Ratio] Nutrition Cent er [facility] ) Body weight 120.00 120.00 [lb_av] MEDENT (D igestive [lb_av] Disease & Nutrition Cent er [facility] ) Body height 64 [in_i] 64 [in_i] MEDENT (Diges tive Disease & Nutrition [facility] ) 5'4" Respiratory rate 13 /min 13 /min MEDENT ( Digestive Disease & Nutrition [facility]) Heart rate 57 /min 57 /min MEDENT (Digest adriana Disease & Nutrition [facility]) Diastolic blood pressure 74 mm[Hg] 74 mm[Hg] MEDENT (Digestive Disease & Nutrition [facility]) Systolic blood pressure 118 mm[Hg] 118 mm[Hg] M EDENT (Digestive Disease & Nutrition [facility]) Body mass index (BMI) 21.8 kg/m2 21.8 kg/m2 MED ENT (Digestive Disease [Ratio] & Nutrition [facility]) Body weight 127.00 [lb_av] 127.00 [lb_av] MEDEN T (Digestive Disease & Nutrition [facility]) Body height 64 [in_i] 64 [in_i] MEDENT (Diges tive Disease & Nutrition [facility]) 5'4" Respiratory rate 13 /min 13 /min [facility] ( [facility]) Heart rate 60 /min 60 /min [facility] ([facility]) Diastolic blood pressure 87 mm[Hg] 87 mm[Hg] [facility] Systolic blood pressure 129 mm[Hg] 129 mm[Hg] [facility] Respiratory rate 18 /min 18 /min [facility] Heart rate 73 /min 73 /min [facility] Body temperature [id number] Kamila [id number] Kamila [facility] Body temperature 98.0 [degF] 98.0 [degF] [facility] Body mass index (BMI) 22.0 kg/m2 22.0 kg/m2 [facility] [Ratio] Body weight 129.85 [lb_av] 129.85 [lb_av] [facility]
--- NOTE | 2020-03-08 14:21 | CONSULT ---
[facility] Psychiatric Consult - Data Date of interview: 03/08/20 Admission source: Self-referred Identifying data: Mr Schuler is a 50 years old single male, unemployed receiving public assistance, domiciled seeking detox treatment for alcohol and opioid Substance Abuse History: Reports history of alcohol and heroin use. Refer to addiction counselor summary for further information Medical History: Significant for osteoarthritis, psoriasis, spinal stenosis cervical with index & thumb numbness, history of treatment of hepatitis C and appendectomy in 1989. Smokes cigaretes 1ppd Psychiatric History: Patient is known for 5 previous admissions to this facility. Reports that he was diagnosed with ADHD and Bipolar Disorder more than 20 years ago. Reports multiple previous psychiatric hospitalizations most at [facility] in [place], [place] and [facility] in [place]. Told continuity writer that he has not had a psychiatric admission in more that 3-[address] Colin at [facility] and he is prescribed Abanda 300 mg/bid and Concerta 54 mg/day. Denies previous suicidal attempt. At present, denies experiencing psychotic, manic or depressive symptoms, S/H ideations. However, reports feeling anxious Physical/Sexual Abuse/Trauma History: Denies history of abuse as a child or DV relationship as an adult Mental Status Exam - Mental Status Exam Alert and Oriented to: Time, Place, Person Cognitive Function: Fair Patient Appearance: Well Groomed Mood: Anxious Affect: Appropriate Patient Behavior: Cooperative Speech Pattern: Clear Voice Loudness: Normal Thought Process: Intact, Goal Oriented Thought Disorder: Not Present Hallucinations: Denies Suicidal Ideation: Denies Homicidal Ideation: Denies Insight/Judgement: Poor Sleep: Well Appetite: Good Muscle strength/Tone: Normal Gait/Station: Normal Psychiatric Findings - Problem List (Post 1, 2,3) (1) Bipolar disorder Current Visit: Yes Status: Chronic Comment: History reported by patient.No compliant with medications for months. (2) ADHD (attention deficit hyperactivity disorder) Current Visit: No Status: Chronic (3) Substance-induced anxiety disorder Current Visit: Yes Status: Acute (4) Alcohol dependence, uncomplicated Current Visit: Yes Status: Acute (5) Uncomplicated opioid dependence Current Visit: Yes Status: Acute (6) Nicotine dependence Current Visit: Yes Status: Acute (7) Spinal stenosis in cervical region Current Visit: No Status: Chronic (8) Psoriasis Current Visit: No Status: Chronic - Initial Treatment Plan Initial Treatment Plan: 1) Continue Abanda 300 mg po BID. 2) Continue inpatient detoxification
[2020-03-08] MEDS: hydrOXYzine PAMOATE 25 MG CAPSULE (FP) PO SCH ×2 (14:42→22:34)
[2020-03-08] MEDS: NICOTINE 21 MG/24 HOURS TOPICAL PATCH TD SCH (14:48)
[2020-03-08 16:26] LABS: HEMATOCRIT 43.6 % (35.4-49); HEMOGLOBIN 14.7 GM/dL (11.7-16.9); MCHC 33.8 g/dl (32.0-35.9); MEAN CELL VOLUME 91.8 fl (80-96); MEAN PLT VOLUME 8.5 fl (7.5-11.1); PLATELET COUNT 144 K/MM3 (134-434); RBC 4.75 M/mm3 (4.00-5.60); WHITE BLOOD COUNT 7.8 K/mm3 (4.0-10.0)
[2020-03-08 16:37] LABS: ALBUMIN 3.9 g/dl (3.4-5.0); BILIRUBIN,TOTAL 0.7 mg/dL (0.2-1); BLOOD UREA NITROGEN 24.8 mg/dL (7-18); CALCIUM 9.5 mg/dL (8.5-10.1); CREATININE 1.1 mg/dL (0.55-1.3); POTASSIUM 4.6 mmol/L (3.5-5.1); TOT PROT 8.4 g/dl (6.4-8.2)
[2020-03-08] MEDS: METHOCARBAMOL 500 MG TABLET PO PRN (22:34)
[2020-03-08] MEDS: THIAMINE HCL 100 MG TABLET (FP) PO SCH (22:35)
[2020-03-08] MEDS: MELATONIN 5 MG TABLETS PO SCH (22:35)
[2020-03-09] MEDS: hydrOXYzine PAMOATE 25 MG CAPSULE (FP) PO SCH ×5 (07:14→21:42)
--- NOTE | 2020-03-09 08:17 | EKG ---
Test Reason : Blood Pressure : / mmHG Vent. Rate : 062 BPM Atrial Rate : 062 BPM P-R Int : 142 ms QRS Dur : 082 ms QT Int : 406 ms P-R-T Axes : 069 052 057 degrees QTc Int : 412 ms NORMAL SINUS RHYTHM NORMAL ECG WHEN COMPARED WITH ECG OF 22-DEC-2016 13:50, NO SIGNIFICANT CHANGE WAS FOUND Confirmed by Edilma Velez ([id number]) on 03/09/2020 8:16:59 AM Referred By: Confirmed By:Edilma Velez
[2020-03-09] MEDS ORDERED: METHADONE HCL 5 MG TABLET (FOR DETOX USE ONLY) ONE (09:03)
[2020-03-09] MEDS ORDERED: METHADONE HCL 10 MG TABLET (FOR DETOX USE ONLY) ONE (09:04)
[2020-03-09] MEDS ORDERED: METHADONE (DETOX) 20 MG, METHADONE (DETOX) 5 MG PO ONE (10:00)
[2020-03-09] MEDS: NICOTINE 21 MG/24 HOURS TOPICAL PATCH TD SCH (10:39)
[2020-03-09] MEDS: PRENATAL VITAMINS W/ FOLIC ACID TABLET (FP) PO SCH (10:39)
[2020-03-09] MEDS: LITHIUM CARBONATE 300 MG CAPSULE (FP) PO SCH (10:39)
--- NOTE | 2020-03-09 13:56 | PN ---
BHS COWS - Scale Resting Pulse: 0= [place] 80 or Below Sweatin= Chills/Flushing Restless Observation: 1= Difficult to Sit Still Pupil Size: 0= Normal to Room Light Bone or Joint Aches: 2= Severe Diffuse Aches Runny Nose/ Eye Tearin= None GI Upset > 30mins: 0= None Tremor Observation of Outstretched Hands: 0= None Yawning Observation: 0= None Anxiety or Irritability: 2=Irritable/Anxious Goose Flesh Skin: 0=Smooth Skin COWS Score: 6 BHS Progress Note (SOAP) Subjective: Complaints of anxiety, chills, and sweats. Objective: 03/09/20 13:55 Vital Signs 03/09/20 09:15 Temperature 97.1 F L Pulse Rate 76 Respiratory 18 Rate Blood Pressure 125/78 Laboratory Last Values WBC 7.8 K/mm3 (4.0-10.0) 03/08/20 12:50 RBC 4.75 M/mm3 (4.00-5.60) 03/08/20 12:50 Hgb 14.7 GM/dL (11.7-16.9) 03/08/20 12:50 Hct 43.6 % (35.4-49) 03/08/20 12:50 MCV 91.8 fl (80-96) 03/08/20 12:50 MCH 31.0 pg (25.7-33.7) 03/08/20 12:50 MCHC 33.8 g/dl (32.0-35.9) 03/08/20 12:50 RDW 13.0 % (11.9-15.9) 03/08/20 12:50 Plt Count 144 K/MM3 (134-434) 03/08/20 12:50 MPV 8.5 fl (7.5-11.1) 03/08/20 12:50 Sodium 136 mmol/L (136-145) 03/08/20 12:50 Potassium 4.6 mmol/L (3.5-5.1) 03/08/20 12:50 Chloride 102 mmol/L (98-107) 03/08/20 12:50 Carbon Dioxide 28 mmol/L (21-32) 03/08/20 12:50 Anion Gap 5 MMOL/L (8-16) L 03/08/20 12:50 BUN 24.8 mg/dL (7-18) H 03/08/20 12:50 Creatinine 1.1 mg/dL (0.55-1.3) 03/08/20 12:50 Est GFR (CKD-EPI)AfAm 89.61 03/08/20 12:50 Est GFR (CKD-EPI)NonAf 77.32 03/08/20 12:50 Random Glucose 81 mg/dL (74-106) 03/08/20 12:50 Calcium 9.5 mg/dL (8.5-10.1) 03/08/20 12:50 Total Bilirubin 0.7 mg/dL (0.2-1) 03/08/20 12:50 AST 16 U/L (15-37) 03/08/20 12:50 ALT 28 U/L (13-61) 03/08/20 12:50 Alkaline Phosphatase 54 U/L (45-117) 03/08/20 12:50 Total Protein 8.4 g/dl (6.4-8.2) H 03/08/20 12:50 Albumin 3.9 g/dl (3.4-5.0) 03/08/20 12:50 Syphilis Serology Non-reactive (NONREACTIVE) 03/08/20 12:50 COVID-19 (JAMES) Not detected (Not Detected) 03/08/20 12:50 labs noted. Assessment: 03/09/20 13:56 Patient seen and examined, alert and oriented x3, in acute respiratory distress. Full ROM, ambulatory in the unit without assistance. Skin warm to touch without lesions. withdrawal symptoms. Plan: Continue detox protocol.
[2020-03-09] MEDS: THIAMINE HCL 100 MG TABLET (FP) PO SCH (21:43)
[2020-03-09] MEDS: MELATONIN 5 MG TABLETS PO SCH (21:43)
[2020-03-10] MEDS: hydrOXYzine PAMOATE 25 MG CAPSULE (FP) PO SCH ×5 (06:29→21:59)
[2020-03-10] MEDS ORDERED: METHADONE HCL 10 MG TABLET (FOR DETOX USE ONLY) PO ONE (10:00)
[2020-03-10] MEDS: NICOTINE 21 MG/24 HOURS TOPICAL PATCH TD SCH (10:11)
[2020-03-10] MEDS: PRENATAL VITAMINS W/ FOLIC ACID TABLET (FP) PO SCH (10:11)
[2020-03-10] MEDS: LITHIUM CARBONATE 300 MG CAPSULE (FP) PO SCH (10:11)
--- NOTE | 2020-03-10 12:07 | PN ---
BHS COWS - Scale Resting Pulse: 0= [place] 80 or Below Sweatin= Chills/Flushing Restless Observation: 1= Difficult to Sit Still Pupil Size: 0= Normal to Room Light Bone or Joint Aches: 2= Severe Diffuse Aches Runny Nose/ Eye Tearin= None GI Upset > 30mins: 0= None Tremor Observation of Outstretched Hands: 1= Tremor [place], Not Seen Yawning Observation: 0= None Anxiety or Irritability: 2=Irritable/Anxious Goose Flesh Skin: 0=Smooth Skin COWS Score: 7 BHS Progress Note (SOAP) Subjective: C/O anxiety, chills, back ache, and shakes. Objective: 03/10/20 12:07 Vital Signs 03/10/20 03/10/20 05:24 08:43 Temperature 97.4 F L 98.4 F Pulse Rate 55 L 67 Respiratory 20 18 Rate Blood Pressure 127/80 124/84 O2 Sat by Pulse 100 100 Oximetry (%) Laboratory Last Values WBC 7.8 K/mm3 (4.0-10.0) 03/08/20 12:50 RBC 4.75 M/mm3 (4.00-5.60) 03/08/20 12:50 Hgb 14.7 GM/dL (11.7-16.9) 03/08/20 12:50 Hct 43.6 % (35.4-49) 03/08/20 12:50 MCV 91.8 fl (80-96) 03/08/20 12:50 MCH 31.0 pg (25.7-33.7) 03/08/20 12:50 MCHC 33.8 g/dl (32.0-35.9) 03/08/20 12:50 RDW 13.0 % (11.9-15.9) 03/08/20 12:50 Plt Count 144 K/MM3 (134-434) 03/08/20 12:50 MPV 8.5 fl (7.5-11.1) 03/08/20 12:50 Sodium 136 mmol/L (136-145) 03/08/20 12:50 Potassium 4.6 mmol/L (3.5-5.1) 03/08/20 12:50 Chloride 102 mmol/L (98-107) 03/08/20 12:50 Carbon Dioxide 28 mmol/L (21-32) 03/08/20 12:50 Anion Gap 5 MMOL/L (8-16) L 03/08/20 12:50 BUN 24.8 mg/dL (7-18) H 03/08/20 12:50 Creatinine 1.1 mg/dL (0.55-1.3) 03/08/20 12:50 Est GFR (CKD-EPI)AfAm 89.61 03/08/20 12:50 Est GFR (CKD-EPI)NonAf 77.32 03/08/20 12:50 Random Glucose 81 mg/dL (74-106) 03/08/20 12:50 Calcium 9.5 mg/dL (8.5-10.1) 03/08/20 12:50 Total Bilirubin 0.7 mg/dL (0.2-1) 03/08/20 12:50 AST 16 U/L (15-37) 03/08/20 12:50 ALT 28 U/L (13-61) 03/08/20 12:50 Alkaline Phosphatase 54 U/L (45-117) 03/08/20 12:50 Total Protein 8.4 g/dl (6.4-8.2) H 03/08/20 12:50 Albumin 3.9 g/dl (3.4-5.0) 03/08/20 12:50 Syphilis Serology Non-reactive (NONREACTIVE) 03/08/20 12:50 COVID-19 (JAMES) Not detected (Not Detected) 03/08/20 12:50 Labs noted. Assessment: 03/10/20 12:07 Alert and oriented x3, in no acute respiratory distress. Full ROM, ambulating in the unit without assistance. Withdrawal symptoms. Plan: Continue detox protocol.
[2020-03-10] MEDS: ACETAMINOPHEN 325 MG TABLET (FP) PO PRN (17:56)
[2020-03-10] MEDS: MELATONIN 5 MG TABLETS PO SCH (21:59)
[2020-03-10] MEDS: THIAMINE HCL 100 MG TABLET (FP) PO SCH (21:59)
[2020-03-11] MEDS: hydrOXYzine PAMOATE 25 MG CAPSULE (FP) PO SCH ×2 (07:12→10:28)
[2020-03-11] MEDS: ACETAMINOPHEN 325 MG TABLET (FP) PO PRN ×3 (07:12→22:20)
[2020-03-11] MEDS ORDERED: METHADONE HCL 5 MG TABLET (FOR DETOX USE ONLY) ONE (09:07)
[2020-03-11] MEDS ORDERED: METHADONE HCL 10 MG TABLET (FOR DETOX USE ONLY) ONE (09:07)
[2020-03-11] MEDS ORDERED: METHADONE (DETOX) 10 MG, METHADONE (DETOX) 5 MG PO ONE (10:00)
[2020-03-11] MEDS: LITHIUM CARBONATE 300 MG CAPSULE (FP) PO SCH (10:26)
[2020-03-11] MEDS: NICOTINE 21 MG/24 HOURS TOPICAL PATCH TD SCH (10:26)
[2020-03-11] MEDS: PRENATAL VITAMINS W/ FOLIC ACID TABLET (FP) PO SCH (10:26)
--- NOTE | 2020-03-11 11:09 | PN ---
BHS COWS - Scale Resting Pulse: 0= [place] 80 or Below Sweatin= Chills/Flushing Restless Observation: 1= Difficult to Sit Still Pupil Size: 0= Normal to Room Light Bone or Joint Aches: 1= Mild Discomfort Runny Nose/ Eye Tearin= None GI Upset > 30mins: 0= None Tremor Observation of Outstretched Hands: 1= Tremor [place], Not Seen Yawning Observation: 0= None Anxiety or Irritability: 1=Feels Anxious/Irritable Goose Flesh Skin: 0=Smooth Skin COWS Score: 5 S Progress Note (SOAP) Subjective: restless shakes interrupted sleep Objective: 03/11/20 11:09 Vital Signs Temperature 97.7 F 03/11/20 08:31 Pulse Rate 80 03/11/20 08:31 Respiratory Rate 16 03/11/20 08:31 Blood Pressure 120/83 03/11/20 08:31 O2 Sat by Pulse Oximetry (%) 99 03/11/20 08:31 aaox3 ambulating no acute distress Assessment: 03/11/20 11:09 withdrawals Plan: continue detox
[2020-03-11] MEDS: hydrOXYzine PAMOATE 25 MG CAPSULE (FP) PO PRN ×2 (14:59→22:19)
[2020-03-11] MEDS: MELATONIN 5 MG TABLETS PO SCH (22:19)
[2020-03-11] MEDS: METHOCARBAMOL 500 MG TABLET PO PRN (22:19)
[2020-03-11] MEDS: THIAMINE HCL 100 MG TABLET (FP) PO SCH (22:19)
--- NOTE | 2020-03-12 09:57 | PN ---
BHS COWS - Scale Resting Pulse: 0= [place] 80 or Below Sweatin= No chills or Flushing Restless Observation: 1= Difficult to Sit Still Pupil Size: 0= Normal to Room Light Bone or Joint Aches: 0= None Runny Nose/ Eye Tearin= None GI Upset > 30mins: 0= None Tremor Observation of Outstretched Hands: 0= None Yawning Observation: 0= None Anxiety or Irritability: 1=Feels Anxious/Irritable Goose Flesh Skin: 0=Smooth Skin COWS Score: 2 BHS Progress Note (SOAP) Subjective: little anxiety Objective: 03/12/20 09:56 Vital Signs Temperature 97.3 F L 03/12/20 06:18 Pulse Rate 52 L 03/12/20 06:18 Respiratory Rate 20 03/12/20 06:18 Blood Pressure 141/76 03/12/20 06:18 O2 Sat by Pulse Oximetry (%) 99 03/12/20 06:18 aaox3 ambulating no acute distress Assessment: 03/12/20 09:56 withdrawals Plan: continue detox d/c in am
[2020-03-12] MEDS ORDERED: METHADONE HCL 10 MG TABLET (FOR DETOX USE ONLY) PO ONE (10:00)
[2020-03-12] MEDS: LITHIUM CARBONATE 300 MG CAPSULE (FP) PO SCH (10:13)
[2020-03-12] MEDS: PRENATAL VITAMINS W/ FOLIC ACID TABLET (FP) PO SCH (10:14)
[2020-03-12] MEDS: NICOTINE 21 MG/24 HOURS TOPICAL PATCH TD SCH (10:14)
[2020-03-12] MEDS: METHOCARBAMOL 500 MG TABLET PO PRN ×2 (10:15→22:15)
[2020-03-12] MEDS: hydrOXYzine PAMOATE 25 MG CAPSULE (FP) PO PRN ×2 (10:15→22:15)
[2020-03-12] MEDS: ACETAMINOPHEN 325 MG TABLET (FP) PO PRN ×2 (10:16→17:22)
[2020-03-12] MEDS: MELATONIN 5 MG TABLETS PO SCH (22:14)
[2020-03-12] MEDS: THIAMINE HCL 100 MG TABLET (FP) PO SCH (22:27)
[2020-03-13] MEDS ORDERED: METHADONE HCL 5 MG TABLET (FOR DETOX USE ONLY) PO ONE (06:00)
[2020-03-13 07:16] VITALS: BP 134/63; PULSE 72; TEMP 97.1
--- NOTE | 2020-03-13 08:40 | DS ---
[facility] Detox Discharge Summary Admission Date: 03/08/20 Discharge Date: 03/13/20 - History Present History: Alcohol Dependence, Cocaine Dependence - Physical Exam Results Vital Signs: Vital Signs Temperature 97.1 F L 03/13/20 05:50 Pulse Rate 72 03/13/20 05:50 Respiratory Rate 16 03/13/20 05:50 Blood Pressure 134/63 03/13/20 05:50 O2 Sat by Pulse Oximetry (%) 98 03/13/20 05:50 Pertinent Admission Physical Exam Findings: Vital Signs Temperature 97.1 F L 03/13/20 05:50 Pulse Rate 72 03/13/20 05:50 Respiratory Rate 16 03/13/20 05:50 Blood Pressure 134/63 03/13/20 05:50 O2 Sat by Pulse Oximetry (%) 98 03/13/20 05:50 Laboratory Tests 03/08/20 03/08/20 03/08/20 12:50 12:50 12:50 WBC 7.8 RBC 4.75 Hgb 14.7 Hct 43.6 MCV 91.8 MCH 31.0 MCHC 33.8 RDW 13.0 Plt Count 144 MPV 8.5 Sodium 136 Potassium 4.6 Chloride 102 Carbon Dioxide 28 Anion Gap 5 L BUN 24.8 H Creatinine 1.1 Est GFR (CKD-EPI)AfAm 89.61 Est GFR (CKD-EPI)NonAf 77.32 Random Glucose 81 Calcium 9.5 Total Bilirubin 0.7 AST 16 ALT 28 Alkaline Phosphatase 54 Total Protein 8.4 H Albumin 3.9 Syphilis Serology Non-reactive COVID-19 (JAMES) 03/08/20 12:50 WBC RBC Hgb Hct MCV MCH MCHC RDW Plt Count MPV Sodium Potassium Chloride Carbon Dioxide Anion Gap BUN Creatinine Est GFR (CKD-EPI)AfAm Est GFR (CKD-EPI)NonAf Random Glucose Calcium Total Bilirubin AST ALT Alkaline Phosphatase Total Protein Albumin Syphilis Serology COVID-19 (JAMES) Not detected labs noted aaox3 ambulating no acute distress - Treatment Hospital Course: Detox Protocol Followed, Detoxed Safely, Responded well, Discharged Condition Good, Rehab Referral Accepted - Medication Discharge Medications: Ambulatory Orders [place] Carbonate [Eskalith -] 300 mg PO DAILY 12/22/16 Methylphenidate HCl [Concerta] 54 mg PO DAILY 03/08/20 - Diagnosis (1) Alcohol dependence, uncomplicated Current Visit: Yes Status: Chronic (2) Nicotine dependence Current Visit: Yes Status: Chronic Qualifiers: Nicotine product type: cigarettes Substance use status: uncomplicated Qualified Code(s): F17.210 - Nicotine dependence, cigarettes, uncomplicated (3) Substance-induced anxiety disorder Current Visit: Yes Status: Acute (4) Uncomplicated opioid dependence Current Visit: Yes Status: Chronic (5) Bipolar disorder Current Visit: Yes Status: Chronic (6) Sedative, hypnotic, or anxiolytic withdrawal Current Visit: No Status: Acute (7) Traumatic ecchymosis of left eyelid Current Visit: No Status: Acute Qualifiers: Encounter type: sequela Qualified Code(s): S00.12XS - Contusion of left eyelid and periocular area, sequela (8) ADHD (attention deficit hyperactivity disorder) Current Visit: No Status: Chronic (9) Alcohol dependence with uncomplicated withdrawal Current Visit: No Status: Chronic (10) Cocaine dependence Current Visit: Yes Status: Chronic Qualifiers: Substance use status: uncomplicated Qualified Code(s): F14.20 - Cocaine dependence, uncomplicated (11) Cocaine dependence with withdrawal Current Visit: Yes Status: Chronic (12) Psoriasis Current Visit: No Status: Chronic (13) Spinal stenosis in cervical region Current Visit: No Status: Chronic - AMA Did Patient Leave Against Medical Advice: No
== END 2020-03-13 08:56 | disposition home or self-care (01) | DRG 773 ==
LOC: YASAS 11:01 → Y6N 13:24
PROVIDERS: ADMIT Allergy & Immunology; ATTEND Allergy & Immunology
PROC: HZ2ZZZZ Detoxification Services for Substance Abuse Treatment (ICD-10-PCS; principal; 2020-03-08)
DX: F10.230 Alcohol dependence with withdrawal, uncomplicated (principal); F11.20 Opioid dependence, uncomplicated; F14.20 Cocaine dependence, uncomplicated; F17.210 Nicotine dependence, cigarettes, uncomplicated; F19.280 Other psychoactive substance dependence with psychoactive substance-induced anxiety disorder; F31.9 Bipolar disorder, unspecified; F90.9 Attention-deficit hyperactivity disorder, unspecified type; L40.9 Psoriasis, unspecified; M48.02 Spinal stenosis, cervical region; Z86.19 Personal history of other infectious and parasitic diseases; Z88.0 Allergy status to penicillin
CPT/HCPCS: 36415; 80053; 85027; 86780; 93005; 93010; C9803; U0003

== ENCOUNTER 2020-09-08 12:58 | Inpatient (IN) | payer OTHER ==
[2020-09-08 14:23] VITALS: BMI 22.8
[2020-09-08] MEDS ORDERED: MENTHOL/PHENOL 1 EACH UD MM PRN (17:59)
[2020-09-08] MEDS ORDERED: MAGNESIUM CITRATE 300 ML BOTTLE PO PRN (17:59)
[2020-09-08] MEDS ORDERED: NICOTINE POLACRILEX 2 MG GUM BUC PRN (17:59)
[2020-09-08] MEDS ORDERED: IBUPROFEN 400 MG TABLET (FP) PO PRN (17:59)
[2020-09-08] MEDS ORDERED: BISMUTH SUBSALICYLATE 524 MG/30 ML UD PO PRN (17:59)
[2020-09-08] MEDS ORDERED: MAGNESIUM HYDROX 2400MG/30ML ORAL SUSPENSION 30 ML CUP PO PRN (17:59)
[2020-09-08] MEDS ORDERED: MAG HYDROX/AL HYDROX/SIMETH 30 ML UNIT-DOSE CUP PO PRN (17:59)
[2020-09-08] MEDS ORDERED: ACETAMINOPHEN 325 MG TABLET (FP) PO PRN ×2 (17:59)
[2020-09-08] MEDS ORDERED: ONDANSETRON *ODT* 4 MG TABLET SL PRN (17:59)
[2020-09-08] MEDS ORDERED: METHADONE HCL 10 MG TABLET (FOR DETOX USE ONLY) PO ONE (20:00)
[2020-09-08] MEDS ORDERED: cloNIDine HCL 0.1 MG TABLET PO PRN (20:00)
[2020-09-08] MEDS: METHOCARBAMOL 500 MG TABLET PO PRN (20:20)
[2020-09-08] MEDS: THIAMINE HCL 100 MG TABLET (FP) PO SCH (23:16)
[2020-09-08] MEDS: MELATONIN 5 MG TABLETS PO SCH (23:16)
[2020-09-09] MEDS ORDERED: METHADONE HCL 5 MG TABLET (FOR DETOX USE ONLY) ONE (08:59)
[2020-09-09] MEDS ORDERED: METHADONE HCL 10 MG TABLET (FOR DETOX USE ONLY) ONE (09:00)
[2020-09-09] MEDS ORDERED: METHADONE (DETOX) 20 MG, METHADONE (DETOX) 5 MG PO ONE (10:00)
[2020-09-09] MEDS: PRENATAL VITAMINS W/ FOLIC ACID TABLET (FP) PO SCH (10:24)
[2020-09-09] MEDS: NICOTINE 14 MG/24 HOURS TOPICAL PATCH TD SCH (10:25)
[2020-09-09 11:34] LABS: HEMATOCRIT 42.1 % (35.4-49); HEMOGLOBIN 14.1 GM/dL (11.7-16.9); MCHC 33.6 g/dl (32.0-35.9); MEAN CELL VOLUME 92.4 fl (80-96); RBC 4.56 M/mm3 (4.00-5.60); RDW 14.1 % (11.9-15.9); WHITE BLOOD COUNT 5.4 K/mm3 (4.0-10.0)
[2020-09-09 11:39] LABS: CALCIUM 9.2 mg/dL (8.5-10.1)
[2020-09-09 11:40] LABS: ALBUMIN 3.4 g/dl (3.4-5.0); BLOOD UREA NITROGEN 12.1 mg/dL (7-18)
[2020-09-09] MEDS: LITHIUM CARBONATE 300 MG CAPSULE PO SCH ×2 (11:41→22:20)
[2020-09-09 11:43] LABS: CREATININE 0.8 mg/dL (0.55-1.3)
[2020-09-09 11:45] LABS: BILIRUBIN,TOTAL 0.5 mg/dL (0.2-1); TOT PROT 7.6 g/dl (6.4-8.2)
[2020-09-09] MEDS: THIAMINE HCL 100 MG TABLET (FP) PO SCH (22:20)
[2020-09-09] MEDS: MELATONIN 5 MG TABLETS PO SCH (22:21)
[2020-09-10 09:42] LABS: HEMOGLOBIN 14.8 GM/dL (11.7-16.9); MCH 31.6 pg (25.7-33.7); MCHC 34.4 g/dl (32.0-35.9); MEAN CELL VOLUME 91.8 fl (80-96); MEAN PLT VOLUME 9.1 fl (7.5-11.1); PLATELET COUNT 90 K/MM3 (134-434); RBC 4.68 M/mm3 (4.00-5.60); RDW 13.7 % (11.9-15.9); WHITE BLOOD COUNT 4.5 K/mm3 (4.0-10.0)
[2020-09-10] MEDS ORDERED: METHADONE HCL 10 MG TABLET (FOR DETOX USE ONLY) PO ONE (10:00)
[2020-09-10] MEDS: PRENATAL VITAMINS W/ FOLIC ACID TABLET (FP) PO SCH (10:08)
[2020-09-10] MEDS: LITHIUM CARBONATE 300 MG CAPSULE PO SCH ×2 (10:09→22:12)
[2020-09-10] MEDS: NICOTINE 14 MG/24 HOURS TOPICAL PATCH TD SCH (10:10)
[2020-09-10] MEDS: MELATONIN 5 MG TABLETS PO SCH (22:21)
[2020-09-10] MEDS: THIAMINE HCL 100 MG TABLET (FP) PO SCH (22:21)
[2020-09-11 06:06] LABS: SARS-CoV-2 NAA Not Detected (Not Detected)
[2020-09-11] MEDS ORDERED: METHADONE HCL 10 MG TABLET (FOR DETOX USE ONLY) ONE (08:28)
[2020-09-11] MEDS ORDERED: METHADONE HCL 5 MG TABLET (FOR DETOX USE ONLY) ONE (08:28)
[2020-09-11] MEDS ORDERED: METHADONE (DETOX) 10 MG, METHADONE (DETOX) 5 MG PO ONE (10:00)
[2020-09-11] MEDS: PRENATAL VITAMINS W/ FOLIC ACID TABLET (FP) PO SCH (10:11)
[2020-09-11] MEDS: LITHIUM CARBONATE 300 MG CAPSULE PO SCH ×2 (10:11→22:09)
[2020-09-11] MEDS: NICOTINE 14 MG/24 HOURS TOPICAL PATCH TD SCH (10:11)
[2020-09-11] MEDS: MELATONIN 5 MG TABLETS PO SCH (22:09)
[2020-09-11] MEDS: THIAMINE HCL 100 MG TABLET (FP) PO SCH (22:09)
[2020-09-12] MEDS ORDERED: METHADONE HCL 10 MG TABLET (FOR DETOX USE ONLY) PO ONE (10:00)
[2020-09-12] MEDS: METHOCARBAMOL 500 MG TABLET PO PRN (10:08)
[2020-09-12] MEDS: PRENATAL VITAMINS W/ FOLIC ACID TABLET (FP) PO SCH (10:08)
[2020-09-12] MEDS: LITHIUM CARBONATE 300 MG CAPSULE PO SCH ×2 (10:09→22:42)
[2020-09-12] MEDS: NICOTINE 14 MG/24 HOURS TOPICAL PATCH TD SCH (10:09)
[2020-09-12] MEDS: THIAMINE HCL 100 MG TABLET (FP) PO SCH (22:19)
[2020-09-12] MEDS: MELATONIN 5 MG TABLETS PO SCH (22:19)
[2020-09-13] MEDS ORDERED: METHADONE HCL 5 MG TABLET (FOR DETOX USE ONLY) PO ONE (06:00)
[2020-09-13] MEDS: NICOTINE 14 MG/24 HOURS TOPICAL PATCH TD SCH (09:00)
[2020-09-13] MEDS: LITHIUM CARBONATE 300 MG CAPSULE PO SCH (09:00)
[2020-09-13] MEDS: PRENATAL VITAMINS W/ FOLIC ACID TABLET (FP) PO SCH (09:00)
[2020-09-13 09:56] VITALS: BP 138/74; PULSE 77; TEMP 98.1
== END 2020-09-13 09:03 | disposition home or self-care (01) | DRG 773 ==
LOC: YASAS 12:58 → Y6N 18:58
PROVIDERS: ADMIT Allergy & Immunology; ATTEND Allergy & Immunology
PROC: HZ2ZZZZ Detoxification Services for Substance Abuse Treatment (ICD-10-PCS; principal; 2020-09-08)
DX: F11.23 Opioid dependence with withdrawal (principal); F10.230 Alcohol dependence with withdrawal, uncomplicated; F17.210 Nicotine dependence, cigarettes, uncomplicated; F19.282 Other psychoactive substance dependence with psychoactive substance-induced sleep disorder; F31.9 Bipolar disorder, unspecified; F90.9 Attention-deficit hyperactivity disorder, unspecified type; M19.90 Unspecified osteoarthritis, unspecified site; M50.20 Other cervical disc displacement, unspecified cervical region; L40.9 Psoriasis, unspecified; Z86.19 Personal history of other infectious and parasitic diseases; Z88.0 Allergy status to penicillin
CPT/HCPCS: 36415; 80053; 80178; 85027; 86780; C9803; J0735; U0003; U0005